=== PATIENT | male | born 1970 | race Caucasian/White ===

== ENCOUNTER 2024-11-25 06:38 | Inpatient (IN) | payer BC, SELFPAY ==
[2024-11-25] VITALS (8 sets, daily range): BP systolic 109–161; BP diastolic 64–84; PULSE 57–71; RESP 12–71; TEMP 36.4–36.9; O2SAT 97–99; BMI 23.4; BMI 23.1
--- NOTE | ~2024-11-25 | MR_ITS ---
CLINICAL HISTORY: New onset generalized seizure MR Brain with and without gadolinium Comparison: CT/SR - CT HEAD/BRAIN WO IV CON - 11/25/24 08:15 EDT Findings: No restricted diffusion. No intra-axial mass or hemorrhage. No midline shift. No hydrocephalus. No mass or abnormal enhancement. Vascular flow voids are intact. Orbital contents are unremarkable. The sinuses are clear. Mild fluid in right mastoid air cells. No focal bone lesion. IMPRESSION: 1. No abnormal intracranial findings. 2. Mild fluid in right mastoid air cells. This document has been electronically signed by: Deb Holguin MD on 11/27/2024 19:38:38
--- NOTE | ~2024-11-25 | XR_ITS ---
CLINICAL HISTORY: altered mental status 1 view chest x-ray Comparison: None provided Findings: The lungs are clear. Heart size is normal. No acute fracture. There are surgical clips within the right shoulder from prior surgery. IMPRESSION: 1. No acute findings. This document has been electronically signed by: Jaciel Tolliver MD on 11/25/2024 08:26:34
--- NOTE | ~2024-11-25 | CT_ITS ---
CLINICAL HISTORY: altered mental status, poss seizure CT head without contrast Comparison: None provided Findings: No intra-axial mass, midline shift, hydrocephalus, or acute hemorrhage. No significant atrophy-like change or white matter disease. There is no sinus or mastoid fluid. The orbits are within normal limits. No skull fracture. IMPRESSION: 1. No acute intracranial findings. This document has been electronically signed by: Cory So MD on 11/25/2024 09:06:04
--- NOTE | 2024-11-25 06:42 | ECG_ITS ---
Test Reason : SYNCOPE Blood Pressure : */* mmHG Vent. Rate : 64 BPM Atrial Rate : 64 BPM P-R Int : 170 ms QRS Dur : 92 ms QT Int : 410 ms P-R-T Axes : 70 -7 7 degrees QTcB Int : 422 ms Normal sinus rhythm Normal ECG No previous ECGs available Referred By: Generic ED Physician Electronically Signed By: AI FRANKS MD
--- NOTE | 2024-11-25 06:52 | ED_ITS ---
HPI - General Adult General Chief complaint: Altered Mental Status Stated complaint: AMS Time Seen by Provider: 11/25/24 06:50 History of Present Illness ED Provider: Amos COX narrative: The patient is a 54-year-old male who describes a past medical history of anxiety but no other significant past medical history. 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 Apparently he was found in his bathroom by his girlfriend this morning with the an altered mental status. He seemed confused. 911 was called. Paramedics felt the patient seemed confused and was behaving as if he might be postictal. He was brought to the hospital. Here the patient says he can not remember anything that happened this morning. The last thing he remembers before waking up with paramedics was going to bed yesterday evening. There was nothing remarkable about how he felt yesterday evening. There were no remarkable events yesterday evening. He currently feels ?cloudy? but denies any specific pain. He denies headache, neck pain, chest pain, pleuritic pain, shortness of breath, abdominal pain, nausea, vomiting. No fever, sweats, chills. 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 He says there was no accident or other problem at work yesterday. The patient has chronic pains in both shoulders that he says are rotator cuff problems and which prevent him from using his shoulders well. Related Data Home Medications ?Medication ?Instructions ?Recorded ?Confirmed paroxetine HCl 10 mg tablet 10 mg PO QAM 11/25/2411/13 Allergies Allergy/AdvReac Type Severity Reaction Status Date / Time No Known Allergies Allergy Verified 11/25/24 06:48 Review of Systems 2 Review of Systems: Yes all other systems are reviewed and are negative [facility] Past Medical History Surgical History (Updated 11/25/24 @ 13:21 by Kerry Ricahrds NP) H/O hernia repair S/P ACL surgery Social History Social History Smoked in Last 30 Days: No Use of substances other than those prescribed or required for medical reasons: Yes Substance Use Type: Marijuana Advance Directives: No Advance Directives Information Provided: No Do you have a plan to hurt others: No Plan Physical Exam ED Vital Signs: Vital Signs - 24 hr 11/25/24 06:45 11/25/24 08:17 11/25/24 10:00 Temperature 97.6 F 97.6 F 98 F Pulse Rate 62 62 60 Respiratory Rate 16 16 12 Blood Pressure 109/64 128/75 Pulse Oximetry 97 97 98 Oxygen Delivery Method Room Air Room Air Room Air BMI result Body Mass Index 23.4 Const Other: The patient is an athletic looking 54-year-old who looks somewhat older than his age. He looked very fatigued but not in acute distress. HENMT Other: Insert face. No signs of trauma to the head or the face. Eyes Other: Pupils are round equal, conjunctivae are clear, extraocular movements intact General: appearance normal, both eyes and all related structures Neck Other: No posterior C-spine tenderness. Moving his neck easily without pain. I felt his C-spine was clinically clear. Resp Effort & Inspection: normal respiratory effort Auscultation: clear to auscultation bilaterally GI Other: Abdomen is soft and nontender Skin Other: Skin is dry and unremarkable Neuro Other: The patient is awake and alert. He has a very slightly vague demeanor but is reasonably well oriented although he does not remember the events immediately preceding his arrival in the emergency room. He is otherwise appropriately ordered. Cranial nerves 2-12 are intact. He moves his extremities symmetrically although he has a lot of discomfort at both shoulders that limits his range of motion. He says this is chronic because of bilateral shoulder problems related to rotator cuff problems. Otherwise he is neurologically intact with no lateralizing findings. Extrem Other: No signs of trauma to the extremities. He has tenderness to both shoulders that he says is chronic. No deformities. Medications Administered Generic Name Dose Route Start Last Admin Trade Name Freq PRN Reason Stop Dose Admin Enoxaparin Sodium 40 mg 11/25/24 14:00 11/25/24 14:25 Enoxaparin Sodium 40 Mg/0.4 Ml Syringe SUBCUT 40 mg Q24H THOM Administration Ketorolac Tromethamine 30 mg 11/25/24 16:30 11/25/24 15:49 Ketorolac Tromethamine 30 Mg/Ml Vial IVPUSH 30 mg Q6H PRN Administration Pain, Moderate(Pain Scale 4-6) Sodium Chloride 3 ml 11/25/24 16:00 11/25/24 15:52 0.9 % Sodium Chloride Flush 3 Ml Syringe IVFLUSH 3 ml QSHIFT THOM Administration Discontinued Medications Generic Name Dose Route Start Last Admin Trade Name Freq PRN Reason Stop Dose Admin Diazepam 5 mg 11/25/24 07:17 11/25/24 07:20 Diazepam 10 Mg/2 Ml Cartridge IVPUSH 11/25/24 07:18 5 mg STAT STA Administration Ketorolac Tromethamine 10 mg 11/25/24 10:19 11/25/24 10:34 Ketorolac Tromethamine 15 Mg/Ml Vial IVPUSH 11/25/24 10:20 10 mg ONCE ONE Administration Medical Decision Making Medical Decision Making [facility] Narrative: The 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 He is on Paxil. This morning his girlfriend found him apparently having a seizure on the floor of the bathroom. He has no history of seizures in the past. The girlfriend says that he also has no history of any recent alcohol use or other drug use aside from marijuana. The girlfriend says that he has had several intermittent episodes of unexpected sweats over the last several months. This can happen as often as once a day and up to 3 times a day. These episodes are brief, less than 5 minutes. He has been seen at his primary care doctor's office for these episodes and the episodes has been attributed to anxiety. I do not know if these episodes are related to his seizure this morning. He has a negative head CT today. Other testing today is unremarkable. He is afebrile. I do not think there is any infectious component to his presentation today. Since he became acutely nauseated and vomited several times immediately after arrival he was given 5 mg of IV diazepam. He was also given IV fluids. He did not have any recurrent seizure activity. Ultimately I felt that hospitalization for observation was reasonable and he was admitted to the hospitalist service. Lab Data 11/25/24 07:46 11/25/24 07:46 Labs: Lab Results 11/25/24 11/25/24 11/25/24 Range/Units 07:46 07:53 10:38 WBC 9.7 (4.8-10.8) X10*3/uL RBC 4.53 L (4.60-5.80) X10*6/uL Hgb 15.0 (14.0-18.0) g/dl Hct 43.7 (42.0-52.0) % MCV 96.5 (80.0-98.0) fL MCH 33.1 H (27.0-33.0) pg MCHC 34.3 (31.0-36.0) g/dl RDW 12.8 (11.0-16.0) % Plt Count 203 (160-400) X10*3/uL MPV 9.0 L (9.4-12.4) fL Immature Gran % (Auto) 0.8 H (0.0-0.4) % Neut % (Auto) 86.8 H (45-73) % Lymph % (Auto) 6.5 L (20-40) % [place] % (Auto) 4.5 (2-11) % Eos % (Auto) 1.0 (0-4) % Baso % (Auto) 0.4 (0-2) % Lymph # (Auto) 0.6 L (1.2-4.9) X10*3/uL [place] # (Auto) 0.4 (0.1-1.2) X10*3/uL Eos # (Auto) 0.1 (0.0-0.4) X10*3/uL Baso # (Auto) 0.0 (0.0-0.2) X10*3/uL Abs Immat Gran (auto) 0.08 H (0.00-0.03) X10*3/uL Absolute Neuts (auto) 8.4 H (2.0-8.3) x10*3/uL Absolute Nucleated RBC 0.000 (0.0-0.012) X10*3/uL Nucleated RBC % (auto) 0.0 (0.0-0.2) /100WBC VBG pH 7.31 L (7.32-7.43) VBG pCO2 49 mmHg VBG pO2 40 mmHg VBG HCO3 25 (22-26) mmol/L VBG O2 Saturation 62.0 % VBG Base Excess -1.0 mmol/L Sodium 142 (135-145) mmol/L Potassium 4.4 (3.3-5.1) mmol/L Chloride 112 H (96-108) mmol/L Carbon Dioxide 25 (22-29) mmol/L Anion Gap 9 L (12-20) BUN 19 H (9-16) mg/dL Creatinine 1.07 (0.5-1.4) mg/dL Estim Creat Clear Calc 82.4 Estimated GFR > 60 Random Glucose 100 (60-115) mg/dL Lactic Acid 1.8 (0.5-2.0) mmol/L Calcium 8.8 (8.4-10.2) mg/dL Magnesium 2.1 (1.6-2.6) mg/dL Total Bilirubin 0.2 (0.0-1.0) mg/dL Direct Bilirubin < 0.2 (0.0-0.5) mg/dL AST 22 (5-37) U/L ALT 19 (0-40) U/L Alkaline Phosphatase 57 (39-117) U/L C-Reactive Protein < 0.10 (< or = 0.50) mg/dL Total Protein 6.7 (6.5-8.0) g/dL Albumin 4.2 (3.5-5.0) g/dL Urine Color Yellow Urine Appearance Cloudy Urine pH 5.0 (5.0-9.0) Ur Specific [place] 1.020 (1.005-1.025) Urine Protein 30 (1+) H (Neg-Trace) mg/dL Urine Glucose (UA) Negative (Negative) mg/dL Urine Ketones Trace (Negative) mg/dL Urine Blood Moderate (2+) H (Negative) Urine Nitrite Negative (Negative) Ur Leukocyte Esterase Negative (Negative) Urine RBC 0-2 (0-2) /HPF Urine WBC 0-5 (0-5) /HPF Ur Squamous Epith Cells 0-2 (0-2) /HPF Urine Bacteria None Seen (None Seen) Hyaline Casts 3-5 (0-2) /LPF Granular Casts Present Urine Opiates Screen Not Detected (Not Detect) Ur Buprenorphine Scrn Not Detected (Not Detect) ng/mL Ur Oxycodone Screen Not Detected (Not Detect) ng/mL Urine Methadone Screen Not Detected (Not Detect) ng/mL Urine Fentanyl Screen Not Detected (Not Detect) Ur Barbiturates Screen Not Detected (Not Detect) Ur Phencyclidine Scrn Not Detected (Not Detect) Ur Amphetamines Screen Not Detected (Not Detect) U Benzodiazepines Scrn POSITIVE H (Not Detect) Urine Cocaine Screen Not Detected (Not Detect) U Marijuana (THC) Screen POSITIVE H (Not Detect) Ethyl Alcohol < 10 mg/dL Independent Interpretation I performed an independent interpretation of an: EKG Interpretation: EKG at 06/17/2005 shows normal sinus rhythm at 64 beats per minute. It is a normal EKG. Discharge Plan Discharge Clinical Impression: Seizure Patient Disposition: Admitted As Inpatient
[2024-11-25] MEDS: diazePAM 10 MG/2 ML CARTRIDGE 5 MG IVPUSH (07:20)
[2024-11-25 07:51] LABS: MANUAL DIFF FLAG NO
[2024-11-25 07:56] LABS: VBG HCO3 25 mmol/L (22-26); VBG O2 % Saturation 62.0 %
[2024-11-25 07:57] LABS: Venous Blood Gas Refer to POC result
[2024-11-25 07:59] LABS: Hematocrit 43.7 % (42.0-52.0); Hemoglobin 15.0 g/dl (14.0-18.0); Imm Gran Abs Auto 0.08 X10*3/uL (0.00-0.03); Imm Gran Pct Auto 0.8 % (0.0-0.4); Lymphocytes Absolute Auto 0.6 X10*3/uL (1.2-4.9); Mean Corpuscular HGB Conc 34.3 g/dl (31.0-36.0); Mean Corpuscular Hemoglobin 33.1 pg (27.0-33.0); Mean Corpuscular Volume 96.5 fL (80.0-98.0); NRBC Abs Auto 0.000 X10*3/uL (0.0-0.012); NRBC Pct Auto 0.0 /100WBC (0.0-0.2); Platelet Count 203 X10*3/uL (160-400); Red Blood Count 4.53 X10*6/uL (4.60-5.80); White Blood Count 9.7 X10*3/uL (4.8-10.8)
--- OUTSIDE RECORDS SUMMARY | 2024-11-25 07:59 | XMS_ITS ---
Author Name [facility] Organization Unknown Care Team Organization Name Specialty Phone Email Start Date End Da te [facility] 11/01/2024 [facility] Batsheva Bauer Primary Care 07/20/2022 11/01/19 [facility] Tricia Calvin Primary Care 01/20/202210/13
--- OUTSIDE RECORDS SUMMARY | 2024-11-25 07:59 | XMS_ITS | Clinical Summary ---
Author Organization [facility] Address [address] [place] [address] Phone Care Team Providers Care Button Sewer Name Role Phone Eliza Varghese MD Primary Care Provider Allergies Active Allergy Reactions Criticality Noted Date Comments Other 01/24/2024 Medications EPINEPHrine (EpiPen 2-Bola) 0.3 mg/0.3 mL injection Inject 0.3 mL (0.3 mg total) into the thigh if needed for anaphylaxis . 1 each 1 06/19/2024 Active PARoxetine (PAXIL) 10 mg tablet Take 1 tablet (10 mg total) by mouth 1 (one) time each day in the morning. 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 Marijuana use 04/11/2020 MRSA (methicillin resistant staph aureus) cultur e positive 06/01/2017 ACL tear 02/03/2013 Immunizations Name Administration Dates Next Due Influenza trivalent, with pr eservative (Fluzone; Afluria) 6mo and older 03/11/2020 Pneumococcal conjugate 20 va lent (Prevnar 20, PCV 20) 2mo and older 06/19/2024 TD, Adsorbed, Preservative Free 10/17/2021 Td Tetanus diptheria (Tdvax) 7yo and older 02/28 Surgical History Surgery Date Site/Laterality Comments OTHER SURGICAL HISTORY PROCEDURE: MS NEUROPLASTY &/TRANSPOSITION ULNAR NERVE ELBOW ROTATOR CUFF REPAIR 2002 PROCEDURE: HISTORICAL ROTATOR CUFF REPAIR; COMMENT: right shoulder KNEE ARTHROSCOPY W/ ACL RECONSTRUCTION Right US GROIN/INGUINAL HERNIA Left Family History Medical History Relation Name Comments Colon cancer Father Prostate cancer Father Relation Name Status Comments Brother x 2 Alive Father Alive Maternal Grandfather Maternal Grandmother Mother Alive Paternal Grandfather Paternal Grandmother Social History Tobacco Use Types Packs/Day Years Used Date Smoking Tobacco: Former Cigarettes Smokeless Tobacco: Never Tobacco Cessation:Counseling Given: Not Answered Alcohol Use Standard Drinks/Week Comments No 0 (1 standard drink = 0.6 oz pur e alcohol) Interpersonal Safety Answer Date Record ed Physical Abuse 01/24/2024 Verbal Abuse 01/24/2024 Sex and Gender Information Value Date Recorded Sex Assigned at Male 01/14/2024 2:55 PM EDT Legal Sex Male 1:16 PM EST Gender Identity Male 01/14/2024 2:55 PM EDT Sexual Orientation Straight 01/14/2024 2: 55 PM EDT Obstetrics History Last Filed Vital Signs Vital Sign Reading Time Taken Comments Blood Pressure 131/77 06/19/2024 9:57 AM EDT Pulse 73 06/19/2024 9:57 AM EDT Temperature 36.3 C (97.3 F) 06/19/2024 9:57 AM EDT Respiratory Rate 16 06/19/2024 9:57 AM EDT Oxygen Saturation 98% 06/19/2024 9:57 AM EDT Inhaled Oxygen Concentration - - Weight 78.1 kg (172 lb 3.2 oz) 06/19/2024 9:57 A M EDT Height 170.2 cm (5' 7 ) 06/19/2024 9:57 AM EDT Body Mass Index 26.97 06/19/2024 9:57 AM EDT Plan of Treatment Upcoming Encounters Date Type Department Care Team (Late st Contact Info) Description 12/28/2024 3:30 PM EDT Office Visit Adult Medicine [facility] [address] [place] [address], [place] [phone] Eliza Varghese MD [address] [place] [address] Health Maintenance Due Date Last Done Comments Zoster Vaccines (1 of 2) 2021 Social Influencers of Health Screening 02/10/2022 Depression Screening 03/15/2024 Influenza Vaccine (#1) 2024 03/11/2020 Colorectal Cancer Screening: Colonoscopy 01/23/2029 01/24/2024 Cholesterol Screening (Lipid Panel) 06/29/2029 06/29/2024, 10/29/2023, 10/29/2023 DTaP,Tdap,and Td Vaccines (3 - Td or Tdap) 10/18/2031 10/17/2021, 02/28/2014 Hepatitis C Screening Completed 05/17/2019 COVID-19 Vaccine Discontinued 04/03/2021, 06/23/2020, 06/02/2020 Pneumococcal Vaccine: 50+ Years Completed 06/19/2024 HIB Vaccines Aged Out No longer eligi ble based on patient's age to complete this topic HIV Screening Discontinued HPV Vaccines Aged Out No longer eligi ble based on patient's age to complete this topic Hepatitis A Vaccines Aged Out No long er eligible based on patient's age to complete this topic Hepatitis B Vaccines Discontinued IPV Vaccines Aged Out No longer eligi ble based on patient's age to complete this topic MMR Vaccines Aged Out No longer eligi ble based on patient's age to complete this topic Meningococcal ACWY Vaccine Aged Out N o longer eligible based on patient's age to complete this topic Meningococcal B Vaccine Aged Out No l onger eligible based on patient's age to complete this topic RSV Immunization Patients Under 20 months Aged Out No longer eligible based on patient's age to complete this topic Varicella Vaccines Aged Out No longer eligible based on patient's age to complete this topic Procedures Procedure Name Priority Date/Time Associated Diagnosis Comments LIPID PANEL WITH REFLEX TO DIRECT LDL Routine 06/29/2024 2:30 PM EDT Encounter for screening for cardiovascular disorders COLONOSCOPY Routine 01/24/2024 3:20 PM EST Colon cancer screening HM HEPATITIS C SCREENING Routine 05/17/2019 from Last 3 Months or Most Recently Relevant to Health Maintenance Results * (ABNORMAL) Lipid panel with reflex to direct LDL (06/29/2024 2:30 PM EDT) Cholesterol 209(H) 0 - 200 mg/dL LAB CHEMISTRY METHOD 06/29/2024 5:36 PM EDT [facility] Triglycerides 242(H) 0 - 150 mg/dL LAB CHEMISTRY METHOD 06/29/2024 5:36 PM EDT [facility] HDL 39(L) >=40 mg/dL LAB CHEMISTRY METHOD 06/29/2024 5:36 PM EDT [facility] LDL Calculated 122(H) 0 - 100 mg/dL LAB CHEMISTRY METHOD 06/29/2024 5:36 PM EDT [facility] VLDL Cholesterol Gerry 48.4 mg/dL LAB CHEMISTRY METHOD 06/29/2024 5:36 PM EDT [facility] Non HDL Chol. (LDL+VLDL) 170(H) <145 mg/dL LAB CHEMISTRY METHOD 06/29/2024 5:36 PM EDT [facility] Chol/HDL Ratio 5.4(H) 0.0 - 4.4 LAB CHEMISTRY METHOD 06/29/2024 5:36 PM EDT [facility] Blood Venous blood specimen / Unknown Venipuncture / Unknown 06/29/2024 2:30 PM EDT 06/29/2024 2:30 PM EDT us Shazia Adamson PULL TAB [employer]ER LAB BLOOD ORDERABLES Final R esult [facility] [address] [place] [address], * COLONOSCOPY Anesthesia - [facility]; [facility] ENDOSCOPY (01/24/2024 3:20 PM EST) Anatomical Region Laterality Modality Other 01/24/2024 3:08 PM EST Narrative 01/24/2024 3:23 PM EST [facility] Patient Name: Roshan Denise Procedure Date: 01/24/2024 3:08 PM Date of : 1970 Age: 54 Gender: Male Note Status: Finalized Attending MD: Adria Baca MD, Procedure Date No Time: 01/24/2024 Procedure: Colonoscopy Indications: Screening for colorectal malignant neoplasm Providers: Adria Baca MD Referring MD: Adria Baca MD Medicines: Propofol per Anesthesia Complications: No immediate complications. Estimated Blood Loss: Estimated blood loss was minimal. Procedure: Pre-Anesthesia Assessment: - ASA Grade Assessment: II - A patient with mild systemic disease. After I obtained informed consent, the scope was passed under direct vision. Throughout the procedure, the patient's blood pressure, pulse, and oxygen saturations were monitored continuously.The Colonoscope was introduced through the anus and advanced to the cecum, identified by appendiceal orifice and ileocecal valve. The colonoscopy was performed without difficulty. The patient tolerated the procedure well. The quality of the bowel preparation was adequate. Findings: The perianal and digital rectal examinations were normal. Internal hemorrhoids were found during endoscopy. The hemorrhoids were Grade I (internal hemorrhoids that do not prolapse). Three sessile polyps were found in the descending colon and hepatic flexure. The polyps were 3 to 5 mm in size. These polyps were removed with a cold snare. Resection and retrieval were complete. Estimated blood loss was minimal. Impression: - Internal hemorrhoids. - Three 3 to 5 mm polyps in the descending colon and at the hepatic flexure, removed with a cold snare. Resected and retrieved. Recommendation: - Await pathology results. - Use fiber, for example Citrucel, Fibercon, Konsyl or Metamucil. - Repeat colonoscopy in 5 years for surveillance. Procedure Code(s): --- Professional --- 78553, Colonoscopy, flexible; with removal of tumor(s), polyp(s), or other lesion(s) by snare technique Diagnosis Code(s): --- Professional --- Z12.11, Encounter for screening for malignant neoplasm of colon K64.0, First degree hemorrhoids D12.4, Benign neoplasm of descending colon D12.3, Benign neoplasm of transverse colon (hepatic flexure or splenic flexure) CPT copyright 2020 [employer]. All rights reserved. The codes documented in this report are preliminary and upon materials handling equipment operator review may be revised to meet current compliance requirements. Adria Baca MD Adria Baca MD 01/24/2024 3:23:01 PM This report has been signed electronically.Adria Baca MD Number of Addenda: 0 Note Initiated On: 01/24/2024 3:08 PM Scope In: Scope Out: Endoscopy Department at [facility] - [address] [place] [phone] Procedure Note Adria Baca MD - 01/24/2024 [facility] GI Patient Name: Roshan Denise Procedure Date: 01/24/2024 3:08 PM Date of : 1970 Age: 54 Gender: Male Note Status: Finalized Attending MD: Adria Baca MD, Procedure Date No Time: 01/24/2024 Procedure: Colonoscopy Indications: Screening for colorectal malignant neoplasm Providers: Adria Baca MD Referring MD: Adria Baca MD Medicines: Propofol per Anesthesia Complications: No immediate complications. Estimated Blood Loss: Estimated blood loss was minimal. Procedure: Pre-Anesthesia Assessment: - ASA Grade Assessment: II - A patient with mild systemic disease. After I obtained informed consent, the scope was passed under direct vision. Throughout theprocedure, the patient's blood pressure, pulse, and oxygen saturations were monitored continuously.The Colonoscope was introduced through the anus and advanced to the cecum, identified by appendiceal orifice and ileocecal valve. The colonoscopy was performed without difficulty. The patient tolerated the procedure well. The quality of the bowel preparation was adequate. Findings: The perianal and digital rectal examinations were normal. Internal hemorrhoids were found during endoscopy.The hemorrhoids were Grade I (internal hemorrhoids thatdo not prolapse). Three sessile polyps were found in the descending colon and hepatic flexure. The polyps were 3 to 5mm in size. These polyps were removed with a coldsnare. Resection and retrieval were complete. Estimatedblood loss was minimal. Impression: - Internal hemorrhoids. - Three 3 to 5 mm polyps in the descending colonand at the hepatic flexure, removed with a cold snare. Resected and retrieved. Recommendation: - Await pathology results. - Use fiber, for example Citrucel, Fibercon, Konsylor Metamucil. - Repeat colonoscopy in 5 years for surveillance. Procedure Code(s): --- Professional --- 52108, Colonoscopy, flexible; with removal of tumor(s), polyp(s), or other lesion(s) by snare technique Diagnosis Code(s): --- Professional --- Z12.11, Encounter for screening for malignantneoplasm of colon K64.0, First degree hemorrhoids D12.4, Benign neoplasm of descending colon D12.3, Benign neoplasm of transverse colon (hepatic flexure or splenic flexure) CPT copyright 2020 [employer]. All rights reserved. The codes documented in this report are preliminary and upon materials handling equipment operator reviewmay be revised to meet current compliance requirements. Adria Baca MD Adria Baca MD 01/24/2024 3:23:01 PM This report has been signed electronically.Adria Baca MD Number of Addenda: 0 Note Initiated On: 01/24/2024 3:08 PM Scope In: Scope Out: Endoscopy Department at [facility] - [address] [place] [phone] Adria Baca MD GI~PROCEDURE ORDERABLES Final Re sult * Hepatitis C Screening (05/17/2019) Hepatitis C Screening Abstracted us Historical Provider HEALTH MAINTENANCE Final Result from Last 3 Months or Most Recently Relevant to Health Maintenance Insurance [facility] Care Teams Button Sewer Relationship Specialty Start Date End Date Eliza Varghese MD [address] [place] [address] PCP - General Internal Medicine 12/26/20
[2024-11-25 08:19] LABS: Alanine Aminotransferase 19 U/L (0-40); Albumin Level 4.2 g/dL (3.5-5.0); Alkaline Phosphatase 57 U/L (39-117); Anion Gap 9 (12-20); Aspartate Amino Transferase 22 U/L (5-37); Blood Urea Nitrogen 19 mg/dL (9-16); Calcium 8.8 mg/dL (8.4-10.2); Carbon Dioxide 25 mmol/L (22-29); Chloride 112 mmol/L (96-108); Creatinine Clr Calc Pharmacy 82.4; Estimated Glomerular Filt Rate > 60; Magnesium 2.1 mg/dL (1.6-2.6); Potassium 4.4 mmol/L (3.3-5.1); Sodium 142 mmol/L (135-145); Total Protein 6.7 g/dL (6.5-8.0)
--- NOTE | 2024-11-25 09:49 | PC.NURSE ---
Patient presents to ED after found him laying on the floor in bathroom unconscious, patient awoke but is lethargic and slow to respond Patient denies pain, SOB, dizziness, vision changes No hx of seizures, PMH anxiety Denies drug use CXR = negative Head CT = negative Family at bedside Katie would like to be contacted if there are any changes [phone]
[2024-11-25 10:47] LABS: Appearance Urine Cloudy; Glucose Urine UA Negative (Negative); PH 5.0 (5.0-9.0); Specific Gravity - Urine 1.020 (1.005-1.025); UMIC TRIGGER UACC YES
[2024-11-25 11:08] LABS: Cannabinoid Screen Urine POSITIVE (Not Detect)
--- NOTE | 2024-11-25 12:51 | PM.IMHP ---
History of Present Illness Date of Service: 11/25/24 Chief Complaint: Seizure 54-year-old man presented to the ER after witnessed seizure at home. Apparently around 6 this morning the heard the dog barking and she got up went to the bathroom and found her on the floor shaking, frothing at the mouth and biting his tongue. Apparently patient also had a loss of bladder control. Patient does not have any history of seizure disorder and denied any recent illness, sick travel, drugs, alcohol. He did report that he has had higher anxiety lately as he is having some financial difficulties. In the ER, head CT was negative for acute abnormality. Patient received a dose of Valium and Toradol in the ER. Labs and vital signs within normal limits. Patient will be placed on observation for further workup of possible seizure Review of Systems Review of Systems: Denies any recent fever chills or decrease in appetite respiratory denies any shortness of breath or cough cardiovascular denied chest pain gastrointestinal denies any dysphagia abdominal pain nausea vomiting or diarrhea genitourinary denies any dysuria frequency or hematuria musculoskeletal denies any joint pain or swelling neuropsych denies any weakness or seizures all other systems reviewed are negative [facility] Surgical History (Updated 11/25/24 @ 13:21 by Kerry Richards NP) H/O hernia repair S/P ACL surgery Social History Smoked in Last 30 Days: No Use of substances other than those prescribed or required for medical reasons: Yes Substance Use Type: Marijuana Advance Directives: No Advance Directives Information Provided: No Do you have a plan to hurt others: No Plan Meds Allergies Allergy/AdvReac Type Severity Reaction Status Date / Time No Known Allergies Allergy Verified 11/25/24 06:48 Physical Exam Vital Signs and Narrative: Vital Signs: Last Vital Signs Temp 98 F 11/25/24 12:00 Pulse 61 11/25/24 12:00 Resp 17 11/25/24 12:00 BP 130/70 11/25/24 12:00 Pulse Ox 98 11/25/24 12:00 O2 Del Method Room Air 11/25/24 12:00 BMI result Body Mass Index 23.4 Appearing in no acute distress head is normocephalic atraumatic eyes pupils are PERRLA sclera is anicteric mouth throat mucous membranes are intact and moist neck is supple no lymphadenopathy, no JVD noted lung sounds are clear to auscultation heart regular rate rhythm, clear S1, S2 positive bowel sounds, abdomen is soft, nontender neuro patient is alert x3, no focal deficits Results Labs 11/25/24 07:46 11/25/24 07:46 Labs: Laboratory Results - last 24 hr 11/25/24 11/25/24 11/25/24 07:46 07:53 10:38 MCV 96.5 MCH 33.1 H MCHC 34.3 RDW 12.8 Plt Count 203 MPV 9.0 L Immature Gran % (Auto) 0.8 H Neut % (Auto) 86.8 H Lymph % (Auto) 6.5 L [place] % (Auto) 4.5 Eos % (Auto) 1.0 Baso % (Auto) 0.4 Lymph # (Auto) 0.6 L [place] # (Auto) 0.4 Eos # (Auto) 0.1 Baso # (Auto) 0.0 Abs Immat Gran (auto) 0.08 H Absolute Neuts (auto) 8.4 H Absolute Nucleated RBC 0.000 Nucleated RBC % (auto) 0.0 VBG pH 7.31 L VBG pCO2 49 VBG pO2 40 VBG HCO3 25 VBG O2 Saturation 62.0 VBG Base Excess -1.0 Anion Gap 9 L Estim Creat Clear Calc 82.4 Estimated GFR > 60 Random Glucose 100 Lactic Acid 1.8 Calcium 8.8 Magnesium 2.1 Total Bilirubin 0.2 Direct Bilirubin < 0.2 AST 22 ALT 19 Alkaline Phosphatase 57 C-Reactive Protein < 0.10 Total Protein 6.7 Albumin 4.2 Urine Color Yellow Urine Appearance Cloudy Urine pH 5.0 Ur Specific [place] 1.020 Urine Protein 30 (1+) H Urine Glucose (UA) Negative Urine Ketones Trace Urine Blood Moderate (2+) H Urine Nitrite Negative Ur Leukocyte Esterase Negative Urine RBC 0-2 Urine WBC 0-5 Ur Squamous Epith Cells 0-2 Urine Bacteria None Seen Hyaline Casts 3-5 Granular Casts Present Urine Opiates Screen Not Detected Ur Buprenorphine Scrn Not Detected Ur Oxycodone Screen Not Detected Urine Methadone Screen Not Detected Urine Fentanyl Screen Not Detected Ur Barbiturates Screen Not Detected Ur Phencyclidine Scrn Not Detected Ur Amphetamines Screen Not Detected U Benzodiazepines Scrn POSITIVE H Urine Cocaine Screen Not Detected U Marijuana (THC) Screen POSITIVE H Ethyl Alcohol < 10 Assessment and Plan (1) Seizure: Status: Acute Plan 54-year-old man presented to the ER with possible new onset seizure Possible new onset seizure Head CT negative for acute abnormality No electrolyte abnormalities Seizure precautions Neurology consultation, hold off on antiseizure medications for now Anxiety continue home medications DVT prophylaxis with Lovenox Full code Quality Stroke Does the patient have a stroke diagnosis?: No VTE Prior VTE?: No VTE Risk Level:: Medical - moderate - high VTE Device Contraindication: Treatment Not Indicated VTE Drug Contraindication: N/A - Med Ordered
--- NOTE | 2024-11-25 14:17 | PC.NURSE ---
pt had episode of diaphoresis. no sz activity. VSS
[2024-11-25 14:23] LABS: Glucose, Whole Blood 94 mg/dL (60-115)
[2024-11-25] MEDS: 0.9 % Sodium Chloride Flush 3 ML SYRINGE IVFLUSH ×2 (15:52→20:15)
--- NOTE | 2024-11-25 16:11 | PHA.MEDREC ---
Pharmacy Consult ? Medication Reconciliation Pharmacy has completed the medication reconciliation. Confirmed medication list with patient.
[2024-11-26 04:00] VITALS: BP 119/70; PULSE 54; RESP 20; TEMP 36.6; O2SAT 96
[2024-11-26 07:15] LABS: Hematocrit 41.9 % (42.0-52.0); Hemoglobin 14.4 g/dl (14.0-18.0); Mean Corpuscular HGB Conc 34.4 g/dl (31.0-36.0); Mean Corpuscular Hemoglobin 32.8 pg (27.0-33.0); Mean Corpuscular Volume 95.4 fL (80.0-98.0); NRBC Abs Auto 0.000 X10*3/uL (0.0-0.012); NRBC Pct Auto 0.0 /100WBC (0.0-0.2); Platelet Count 202 X10*3/uL (160-400); Red Blood Count 4.39 X10*6/uL (4.60-5.80); White Blood Count 9.7 X10*3/uL (4.8-10.8)
--- NOTE | 2024-11-26 07:19 | HO.PM.IMPN ---
Subjective Subjective Date of Service: 11/26/24 Interval History: Patient is seizure free since admission We will continue to monitor His mother was at bedside Physical Exam Exam: Exam: General: AOx3, no acute distress Resp: CTA bilaterally CVS: S1, S2, RRR GI: +BS, NT, no distention Skin: Warm, dry Neuro: No indication of any seizures Vital Signs: Vital Signs: Last Vital Signs Temp 97.9 F 11/26/24 04:00 Pulse 54 11/26/24 04:00 Resp 20 11/26/24 04:00 BP 119/70 11/26/24 04:00 Pulse Ox 96 11/26/24 04:00 O2 Del Method Room Air 11/26/24 04:00 BMI result Body Mass Index 23.1 Objective Data Active Medications Acetaminophen (Acetaminophen 325 Mg Tablet) 650 mg PO Q6H PRN PRN Reason: Pain, Mild 1-3,fever,headache Calcium Carbonate (Calcium Carbonate 750 Mg Tab.Chew) 750 mg PO Q4H PRN PRN Reason: Heartburn Enoxaparin Sodium (Enoxaparin Sodium 40 Mg/0.4 Ml Syringe) 40 mg SUBCUT Q24H [facility] Last Admin: 11/25/24 14:25 Dose: 40 mg Documented By: DELMIS Ketorolac Tromethamine (Ketorolac Tromethamine 30 Mg/Ml Vial) 30 mg IVPUSH Q6H PRN PRN Reason: Pain, Moderate(Pain Scale 4-6) Last Admin: 11/25/24 22:14 Dose: 30 mg Documented By: JEANETTE Magnesium Hydroxide (Milk Of Magnesia 30 Ml Oral.Susp) 30 ml PO DAILY PRN PRN Reason: Constipation Melatonin (Melatonin 3 Mg Tablet) 6 mg PO BEDTIME PRN PRN Reason: Insomnia Ondansetron HCl (Ondansetron Hcl 4 Mg/2 Ml Vial) 4 mg IVPUSH Q8H PRN PRN Reason: Nausea and Vomiting Sodium Chloride (0.9 % Sodium Chloride Flush 3 Ml Syringe) 3 ml IVFLUSH QSHIFT [facility] Last Admin: 11/25/24 20:15 Dose: 3 ml Documented By: JEANETTE Labs 11/26/24 06:35 11/26/24 06:35 Labs: Laboratory Results - last 24 hr 11/25/24 11/25/24 11/25/24 07:46 07:53 10:38 MCV 96.5 MCH 33.1 H MCHC 34.3 RDW 12.8 Plt Count 203 MPV 9.0 L Immature Gran % (Auto) 0.8 H Neut % (Auto) 86.8 H Lymph % (Auto) 6.5 L [place] % (Auto) 4.5 Eos % (Auto) 1.0 Baso % (Auto) 0.4 Lymph # (Auto) 0.6 L [place] # (Auto) 0.4 Eos # (Auto) 0.1 Baso # (Auto) 0.0 Abs Immat Gran (auto) 0.08 H Absolute Neuts (auto) 8.4 H Absolute Nucleated RBC 0.000 Nucleated RBC % (auto) 0.0 VBG pH 7.31 L VBG pCO2 49 VBG pO2 40 VBG HCO3 25 VBG O2 Saturation 62.0 VBG Base Excess -1.0 Anion Gap 9 L Estim Creat Clear Calc 82.4 Estimated GFR > 60 POC Glucose Random Glucose 100 Lactic Acid 1.8 Calcium 8.8 Magnesium 2.1 Total Bilirubin 0.2 Direct Bilirubin < 0.2 AST 22 ALT 19 Alkaline Phosphatase 57 C-Reactive Protein < 0.10 Total Protein 6.7 Albumin 4.2 Urine Color Yellow Urine Appearance Cloudy Urine pH 5.0 Ur Specific [place] 1.020 Urine Protein 30 (1+) H Urine Glucose (UA) Negative Urine Ketones Trace Urine Blood Moderate (2+) H Urine Nitrite Negative Ur Leukocyte Esterase Negative Urine RBC 0-2 Urine WBC 0-5 Ur Squamous Epith Cells 0-2 Urine Bacteria None Seen Hyaline Casts 3-5 Granular Casts Present Urine Opiates Screen Not Detected Ur Buprenorphine Scrn Not Detected Ur Oxycodone Screen Not Detected Urine Methadone Screen Not Detected Urine Fentanyl Screen Not Detected Ur Barbiturates Screen Not Detected Ur Phencyclidine Scrn Not Detected Ur Amphetamines Screen Not Detected U Benzodiazepines Scrn POSITIVE H Urine Cocaine Screen Not Detected U Marijuana (THC) Screen POSITIVE H Ethyl Alcohol < 10 11/25/24 11/26/24 14:17 06:35 MCV 95.4 MCH 32.8 MCHC 34.4 RDW 12.7 Plt Count 202 MPV 9.3 L Immature Gran % (Auto) Neut % (Auto) Lymph % (Auto) [place] % (Auto) Eos % (Auto) Baso % (Auto) Lymph # (Auto) [place] # (Auto) Eos # (Auto) Baso # (Auto) Abs Immat Gran (auto) Absolute Neuts (auto) Absolute Nucleated RBC 0.000 Nucleated RBC % (auto) 0.0 VBG pH VBG pCO2 VBG pO2 VBG HCO3 VBG O2 Saturation VBG Base Excess Anion Gap Estim Creat Clear Calc Estimated GFR POC Glucose 94 Random Glucose Lactic Acid Calcium Magnesium Total Bilirubin Direct Bilirubin AST ALT Alkaline Phosphatase C-Reactive Protein Total Protein Albumin Urine Color Urine Appearance Urine pH Ur Specific [place] Urine Protein Urine Glucose (UA) Urine Ketones Urine Blood Urine Nitrite Ur Leukocyte Esterase Urine RBC Urine WBC Ur Squamous Epith Cells Urine Bacteria Hyaline Casts Granular Casts Urine Opiates Screen Ur Buprenorphine Scrn Ur Oxycodone Screen Urine Methadone Screen Urine Fentanyl Screen Ur Barbiturates Screen Ur Phencyclidine Scrn Ur Amphetamines Screen U Benzodiazepines Scrn Urine Cocaine Screen U Marijuana (THC) Screen Ethyl Alcohol Assessment and Plan (1) Seizure: Status: Acute Plan Patient with history of anxiety without prior seizure history was noted to be postictal by his girlfriend and was admitted for seizure workup. # seizure of unclear etiology Intracranial pathology ruled out with scans Patient has been on seizure precautions, remained seizure-free since admission night Tox screen positive for benzo, administered this admission, marijuana We will continue to monitor and if remains seizure-free, we will schedule him with outpatient PCP and neurology workup/ Per Neurology, does not warrant EEG or seizure meds since this is a 1st time occurrence DVT prophylaxis with Lovenox to be continued Anxiety -continue home meds This note is constructed using voice recognition software. While every effort has been made to ensure accuracy, visual presentation manager errors may have been included. Quality Stroke Does the patient have a stroke diagnosis?: No VTE Prior VTE?: No VTE Risk Level:: Medical - moderate - high VTE Device Contraindication: Treatment Not Indicated VTE Drug Contraindication: N/A - Med Ordered
[2024-11-26 07:26] LABS: Magnesium 2.1 mg/dL (1.6-2.6)
[2024-11-26 07:35] LABS: Alanine Aminotransferase 16 U/L (0-40); Albumin Level 4.2 g/dL (3.5-5.0); Alkaline Phosphatase 59 U/L (39-117); Anion Gap 13 (12-20); Aspartate Amino Transferase 24 U/L (5-37); Blood Urea Nitrogen 21 mg/dL (9-16); Calcium 9.1 mg/dL (8.4-10.2); Carbon Dioxide 23 mmol/L (22-29); Chloride 110 mmol/L (96-108); Creatinine Clr Calc Pharmacy 93.8; Estimated Glomerular Filt Rate > 60; Potassium 3.6 mmol/L (3.3-5.1); Sodium 142 mmol/L (135-145); Total Protein 6.8 g/dL (6.5-8.0)
[2024-11-26 07:38] VITALS: BP 129/63; PULSE 52; RESP 18; TEMP 36.1; O2SAT 98
[2024-11-26 07:44] LABS: Thyroid Stimulating Hormone 1.42 uIU/mL (0.32-4.0)
--- NOTE | 2024-11-26 11:30 | PC.NURSE ---
Patient scored as high fall risk do to question of seizure but refused bed alarm, education provided on the use of call back and importance of asking for assistance while ambulating.
[2024-11-26 11:49] VITALS: BP 151/70; PULSE 57; RESP 18; TEMP 36.4; O2SAT 98
[2024-11-26] MEDS: 0.9 % Sodium Chloride Flush 3 ML SYRINGE IVFLUSH ×3 (12:08→22:10)
--- NOTE | 2024-11-26 15:26 | MHC.CM.PN ---
PT REPORTS HE LIVES WITH HIS S/O AND CHILDREN HE IS INDEPENDENT WITH CARE, HAS NO DME AND NO SERVICES PCP AT [facility] IN [place] A HCP OBSERVATION NOTICE DELIVERED DCP: HOME VIA PRIVATE TRANSPORT
[2024-11-26 15:38] VITALS: BP 151/75; PULSE 64; RESP 16; TEMP 36.3; O2SAT 99
[2024-11-26 19:59] VITALS: BP 134/65; PULSE 50; RESP 18; TEMP 36.1; O2SAT 98
[2024-11-26 23:32] VITALS: BP 118/65; PULSE 53; RESP 18; TEMP 36.4; O2SAT 98
[2024-11-27 03:33] VITALS: BP 135/73; PULSE 60; RESP 16; TEMP 36.3; O2SAT 98
[2024-11-27 06:53] LABS: MANUAL DIFF FLAG NO
[2024-11-27 07:01] LABS: Hematocrit 44.9 % (42.0-52.0); Hemoglobin 15.2 g/dl (14.0-18.0); Imm Gran Abs Auto 0.04 X10*3/uL (0.00-0.03); Imm Gran Pct Auto 0.5 % (0.0-0.4); Lymphocytes Absolute Auto 1.2 X10*3/uL (1.2-4.9); Mean Corpuscular HGB Conc 33.9 g/dl (31.0-36.0); Mean Corpuscular Hemoglobin 32.8 pg (27.0-33.0); Mean Corpuscular Volume 96.8 fL (80.0-98.0); NRBC Abs Auto 0.000 X10*3/uL (0.0-0.012); NRBC Pct Auto 0.0 /100WBC (0.0-0.2); Platelet Count 224 X10*3/uL (160-400); Red Blood Count 4.64 X10*6/uL (4.60-5.80); White Blood Count 7.6 X10*3/uL (4.8-10.8)
[2024-11-27 07:21] LABS: Alanine Aminotransferase 18 U/L (0-40); Albumin Level 4.4 g/dL (3.5-5.0); Alkaline Phosphatase 57 U/L (39-117); Anion Gap 12 (12-20); Aspartate Amino Transferase 22 U/L (5-37); Blood Urea Nitrogen 26 mg/dL (9-16); Calcium 9.2 mg/dL (8.4-10.2); Carbon Dioxide 28 mmol/L (22-29); Chloride 107 mmol/L (96-108); Creatinine Clr Calc Pharmacy 91.8; Estimated Glomerular Filt Rate > 60; Potassium 3.6 mmol/L (3.3-5.1); Sodium 143 mmol/L (135-145); Total Protein 7.0 g/dL (6.5-8.0)
--- NOTE | 2024-11-27 07:33 | HO.PM.IMPN ---
Subjective Subjective Date of Service: 11/27/24 Interval History: Seizure-free Mother at the bedside EEG ordered Neuro consulted , initiated on levetiracetam Patient Review of Systems Review of Systems: Yes all other systems are reviewed and are negative Physical Exam Exam: Exam: General: AOx3, no acute distress Resp: CTA bilaterally CVS: S1, S2, RRR GI: +BS, NT, no distention Skin: Warm, dry Neuro: Cranial nerves II-XII grossly intact bilaterally. Motor grossly intact bilaterally Extremities: No edema Psych: Appropriate affect Vital Signs: Vital Signs: Last Vital Signs Temp 97.4 F 11/27/24 03:33 Pulse 60 11/27/24 03:33 Resp 16 11/27/24 03:33 BP 135/73 11/27/24 03:33 Pulse Ox 98 11/27/24 03:33 O2 Del Method Room Air 11/27/24 03:33 BMI result Body Mass Index 23.1 Objective Data Active Medications Acetaminophen (Acetaminophen 325 Mg Tablet) 650 mg PO Q6H PRN PRN Reason: Pain, Mild 1-3,fever,headache Calcium Carbonate (Calcium Carbonate 750 Mg Tab.Chew) 750 mg PO Q4H PRN PRN Reason: Heartburn Enoxaparin Sodium (Enoxaparin Sodium 40 Mg/0.4 Ml Syringe) 40 mg SUBCUT Q24H [facility] Last Admin: 11/26/24 15:09 Dose: 40 mg Documented By: JASWANT Ketorolac Tromethamine (Ketorolac Tromethamine 30 Mg/Ml Vial) 30 mg IVPUSH Q6H PRN PRN Reason: Pain, Moderate(Pain Scale 4-6) Last Admin: 11/26/24 22:09 Dose: 30 mg Documented By: KELLY Magnesium Hydroxide (Milk Of Magnesia 30 Ml Oral.Susp) 30 ml PO DAILY PRN PRN Reason: Constipation Melatonin (Melatonin 3 Mg Tablet) 6 mg PO BEDTIME PRN PRN Reason: Insomnia Ondansetron HCl (Ondansetron Hcl 4 Mg/2 Ml Vial) 4 mg IVPUSH Q8H PRN PRN Reason: Nausea and Vomiting Paroxetine HCl (Paroxetine Hcl 10 Mg Tablet) 10 mg PO DAILY [facility] Last Admin: 11/26/24 12:07 Dose: 10 mg Documented By: JASWANT Sodium Chloride (0.9 % Sodium Chloride Flush 3 Ml Syringe) 3 ml IVFLUSH QSHIFT [facility] Last Admin: 11/26/24 22:10 Dose: 3 ml Documented By: KELLY Labs 11/27/24 06:15 11/27/24 06:15 Labs: Laboratory Results - last 24 hr 11/26/24 11/27/24 06:35 06:15 MCV 96.8 MCH 32.8 MCHC 33.9 RDW 12.5 Plt Count 224 MPV 9.5 Immature Gran % (Auto) 0.5 H Neut % (Auto) 76.3 H Lymph % (Auto) 15.1 L [place] % (Auto) 6.6 Eos % (Auto) 0.8 Baso % (Auto) 0.7 Lymph # (Auto) 1.2 [place] # (Auto) 0.5 Eos # (Auto) 0.1 Baso # (Auto) 0.1 Abs Immat Gran (auto) 0.04 H Absolute Neuts (auto) 5.8 Absolute Nucleated RBC 0.000 Nucleated RBC % (auto) 0.0 Anion Gap 13 12 Estim Creat Clear Calc 93.8 91.8 Estimated GFR > 60 > 60 Random Glucose 94 96 Calcium 9.1 9.2 Total Bilirubin 0.5 0.5 AST 24 22 ALT 16 18 Alkaline Phosphatase 59 57 Total Creatine Kinase 202 H Total Protein 6.8 7.0 Albumin 4.2 4.4 TSH 1.42 Assessment and Plan (1) Seizure: Status: Acute Plan Patient with history of heavy marijuana use, anxiety without prior seizure history was noted to be postictal by his girlfriend and was admitted for seizure workup - # seizure of unclear etiology Although unclear etiology, could be in the setting of marijuana versus stress versus idiopathic however initial imaging negative Neurology consulted We will get brain MRI with and without contrast EEG ordered as per Neurology Advised about marijuana side effects and advised the patient to cut down Patient to be started on levetiracetam 500 mg p.o. b.i.d. after obtaining EEG We will check RUTHY, syphilis, Lyme, HIV DVT prophylaxis with Lovenox to be continued Anxiety -continue home meds This note is constructed using voice recognition software. While every effort has been made to ensure accuracy, prototyper errors may have been included. Quality Stroke Does the patient have a stroke diagnosis?: No VTE Prior VTE?: No VTE Risk Level:: Medical - moderate - high VTE Device Contraindication: Treatment Not Indicated VTE Drug Contraindication: N/A - Med Ordered
[2024-11-27 07:42] VITALS: BP 146/76; PULSE 63; RESP 17; TEMP 36.3; O2SAT 100
--- NOTE | 2024-11-27 08:24 | PM.NEUROCN ---
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 Prior to that, he has been having set of symptoms that he attributed as anxiety attacks. Typically he would suddenly start having a dizzy feeling but not confusion or alteration of consciousness associated with sweating lasting for few minutes. There was no associated cardiac symptom. He was treated with Paxil that has not completely stopped these episodes. The other day he was at home when family noted something wrong and found him on the floor shaking all over. He bit his tongue but did not urinate. It lasted for few sec to a minute or 2 and then in few minutes he was alert and awake. He denied alcohol abuse or any significant head injury. There was no family history of seizure disorder. Review of Systems Review of Systems: No recent cold or flu-like illness or trauma or headache. [facility] Surgical History Surgical History H/O hernia repair S/P ACL surgery Social History Social History Household Members: Spouse and Children Housing: House Do you presently have visiting nurse or other home services: No Patient Tobacco Use Status: Never used Tobacco Smoked in Last 30 Days: No Use of substances other than those prescribed or required for medical reasons: Yes Substance Use Type: Marijuana Currently Displaying Signs/Symptoms of Drug Intoxication Withdrawal: No Have you been hit, kicked, punched, or otherwise hurt by someone within the past year? If so, by whom?: No Do you feel safe in your current relationship?: Yes Is there a partner from a previous relationship who is making you feel unsafe now?: No Are you made to feel afraid or neglected: No Advance Directives: No Advance Directives Information Provided: No Do you have a plan to hurt others: No Plan Recently lost weight without trying: Yes How much weight loss: Unsure Eating poorly because of decreased appetite: Yes Nutrition screen score: 5 Nutrition Risks: Poor intake 0-25% >4 days service: No Meds Allergies Allergy/AdvReac Type Severity Reaction Status Date / Time No Known Allergies Allergy Verified 11/25/24 06:48 Active Medications: Current Medications Acetaminophen (Acetaminophen 325 Mg Tablet) 650 mg PO Q6H PRN PRN Reason: Pain, Mild 1-3,fever,headache Calcium Carbonate (Calcium Carbonate 750 Mg Tab.Chew) 750 mg PO Q4H PRN PRN Reason: Heartburn Enoxaparin Sodium (Enoxaparin Sodium 40 Mg/0.4 Ml Syringe) 40 mg SUBCUT Q24H [facility] Last Admin: 11/26/24 15:09 Dose: 40 mg Ketorolac Tromethamine (Ketorolac Tromethamine 30 Mg/Ml Vial) 30 mg IVPUSH Q6H PRN PRN Reason: Pain, Moderate(Pain Scale 4-6) Last Admin: 11/26/24 22:09 Dose: 30 mg Magnesium Hydroxide (Milk Of Magnesia 30 Ml Oral.Susp) 30 ml PO DAILY PRN PRN Reason: Constipation Melatonin (Melatonin 3 Mg Tablet) 6 mg PO BEDTIME PRN PRN Reason: Insomnia Ondansetron HCl (Ondansetron Hcl 4 Mg/2 Ml Vial) 4 mg IVPUSH Q8H PRN PRN Reason: Nausea and Vomiting Paroxetine HCl (Paroxetine Hcl 10 Mg Tablet) 10 mg PO DAILY [facility] Last Admin: 11/26/24 12:07 Dose: 10 mg Sodium Chloride (0.9 % Sodium Chloride Flush 3 Ml Syringe) 3 ml IVFLUSH QSHIFT [facility] Last Admin: 11/26/24 22:10 Dose: 3 ml Home Medications ?Medication ?Instructions ?Recorded ?Confirmed ?Last Taken ?Type paroxetine HCl 10 mg tablet 10 mg PO QAM 11/25/24 11/25/24 11/24/24 History Physical Exam Vital Signs: Vital Signs: Last Vital Signs Temp 97.4 F 11/27/24 07:42 Pulse 63 11/27/24 07:42 Resp 17 11/27/24 07:42 BP 146/76 H 11/27/24 07:42 Pulse Ox 100 11/27/24 07:42 O2 Del Method Room Air 11/27/24 07:42 BMI result Body Mass Index 23.1 Neuro: Other: He is alert and awake with normal spontaneity of speech fluency comprehension and anxious affect. He had a significant bruise on left side of his tongue. Extraocular muscles were okay. Visual swanson are full. Face is symmetrical. Tongue is midline. There was no focal arm or leg weakness. Plantars are flexor. Speech is normal. Results Labs 11/27/24 06:15 11/27/24 06:15 Labs: Short CBC 11/27/24 Range/Units 06:15 WBC 7.6 (4.8-10.8) X10*3/uL Hgb 15.2 (14.0-18.0) g/dl Hct 44.9 (42.0-52.0) % Plt Count 224 (160-400) X10*3/uL BMP 11/27/24 06:15 Sodium 143 Potassium 3.6 Chloride 107 Carbon Dioxide 28 BUN 26 H Creatinine 0.96 Calcium 9.2 Cardiac Enzymes 11/26/24 Range/Units 06:35 Total Creatine Kinase 202 H (38-174) U/L Liver Function 11/27/24 Range/Units 06:15 Total Bilirubin 0.5 (0.0-1.0) mg/dL AST 22 (5-37) U/L ALT 18 (0-40) U/L Alkaline Phosphatase 57 (39-117) U/L Albumin 4.4 (3.5-5.0) g/dL Head CT did not reveal any significant abnormality. Chest x-ray was okay. Tox screen was positive for benzos and marijuana. Assessment and Plan (1) Seizure: Status: Acute 54 years old man with 1st generalized seizure. He reported few minutes of episodes for about a year, which might also be partial seizures. My recommendation is an MRI of brain with and without contrast and an electroencephalogram. He was educated about this condition and was advised to minimize use of marijuana. 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 Because of the nature of the spell, I recommend starting him on levetiracetam 500 mg twice a day after obtaining EEG. I also recommend antinuclear antibody titer, syphilis test, Lyme test, an HIV test. Procedures Date of Service Date of Service: 11/27/24
[2024-11-27] MEDS: 0.9 % Sodium Chloride Flush 3 ML SYRINGE IVFLUSH ×3 (10:37→21:44)
[2024-11-27 11:29] VITALS: BP 146/73; PULSE 59; RESP 16; TEMP 36.2; O2SAT 99
[2024-11-27 15:29] VITALS: BP 148/68; PULSE 53; RESP 18; TEMP 36.5; O2SAT 100
[2024-11-27 19:13] VITALS: BP 134/73; PULSE 63; RESP 16; TEMP 36.8; O2SAT 97
[2024-11-27 23:16] VITALS: BP 139/66; PULSE 52; RESP 16; TEMP 36.2; O2SAT 99
[2024-11-28 03:36] VITALS: BP 146/70; PULSE 52; RESP 18; TEMP 36.6; O2SAT 98
[2024-11-28 07:07] VITALS: BP 150/78; PULSE 54; RESP 20; TEMP 36.6; O2SAT 98
--- NOTE | 2024-11-28 07:18 | HO.PM.IMPN ---
Subjective Subjective Date of Service: 11/28/24 Physical Exam Vital Signs: Vital Signs: Last Vital Signs Temp 97.8 F 11/28/24 07:07 Pulse 54 11/28/24 07:07 Resp 20 11/28/24 07:07 BP 150/78 H 11/28/24 07:07 Pulse Ox 98 11/28/24 07:07 O2 Del Method Room Air 11/28/24 07:07 BMI result Body Mass Index 23.1 Objective Data Active Medications Acetaminophen (Acetaminophen 325 Mg Tablet) 650 mg PO Q6H PRN PRN Reason: Pain, Mild 1-3,fever,headache Calcium Carbonate (Calcium Carbonate 750 Mg Tab.Chew) 750 mg PO Q4H PRN PRN Reason: Heartburn Enoxaparin Sodium (Enoxaparin Sodium 40 Mg/0.4 Ml Syringe) 40 mg SUBCUT Q24H [facility] Last Admin: 11/27/24 16:21 Dose: 40 mg Documented By: JODY Ketorolac Tromethamine (Ketorolac Tromethamine 30 Mg/Ml Vial) 30 mg IVPUSH Q6H PRN PRN Reason: Pain, Moderate(Pain Scale 4-6) Last Admin: 11/27/24 21:42 Dose: 30 mg Documented By: KELLY Levetiracetam (Levetiracetam 500 Mg Tablet) 500 mg PO BID [facility] Last Admin: 11/27/24 21:57 Dose: Not Given Documented By: KELLY Non-Admin Reason: Hold until after EEG per Neuro Magnesium Hydroxide (Milk Of Magnesia 30 Ml Oral.Susp) 30 ml PO DAILY PRN PRN Reason: Constipation Melatonin (Melatonin 3 Mg Tablet) 6 mg PO BEDTIME PRN PRN Reason: Insomnia Ondansetron HCl (Ondansetron Hcl 4 Mg/2 Ml Vial) 4 mg IVPUSH Q8H PRN PRN Reason: Nausea and Vomiting Paroxetine HCl (Paroxetine Hcl 10 Mg Tablet) 10 mg PO DAILY [facility] Last Admin: 11/27/24 10:36 Dose: 10 mg Documented By: JODY Sodium Chloride (0.9 % Sodium Chloride Flush 3 Ml Syringe) 3 ml IVFLUSH QSHIFT [facility] Last Admin: 11/27/24 21:44 Dose: 3 ml Documented By: KELLY Labs 11/27/24 06:15 11/27/24 06:15 Labs: Laboratory Results - last 24 hr 11/27/24 06:15 Anion Gap 12 Estim Creat Clear Calc 91.8 Estimated GFR > 60 Random Glucose 96 Calcium 9.2 Total Bilirubin 0.5 AST 22 ALT 18 Alkaline Phosphatase 57 Total Protein 7.0 Albumin 4.4 Quality Stroke Does the patient have a stroke diagnosis?: No VTE Prior VTE?: No VTE Risk Level:: Medical - moderate - high VTE Device Contraindication: Treatment Not Indicated VTE Drug Contraindication: N/A - Med Ordered
[2024-11-28 07:21] LABS: MANUAL DIFF FLAG NO
[2024-11-28 07:36] LABS: Hematocrit 42.5 % (42.0-52.0); Hemoglobin 15.0 g/dl (14.0-18.0); Imm Gran Abs Auto 0.04 X10*3/uL (0.00-0.03); Imm Gran Pct Auto 0.5 % (0.0-0.4); Lymphocytes Absolute Auto 1.2 X10*3/uL (1.2-4.9); Mean Corpuscular HGB Conc 35.3 g/dl (31.0-36.0); Mean Corpuscular Hemoglobin 33.4 pg (27.0-33.0); Mean Corpuscular Volume 94.7 fL (80.0-98.0); NRBC Abs Auto 0.000 X10*3/uL (0.0-0.012); NRBC Pct Auto 0.0 /100WBC (0.0-0.2); Platelet Count 212 X10*3/uL (160-400); Red Blood Count 4.49 X10*6/uL (4.60-5.80); White Blood Count 7.7 X10*3/uL (4.8-10.8)
[2024-11-28 07:46] LABS: Alanine Aminotransferase 16 U/L (0-40); Albumin Level 4.2 g/dL (3.5-5.0); Alkaline Phosphatase 54 U/L (39-117); Anion Gap 13 (12-20); Aspartate Amino Transferase 22 U/L (5-37); Blood Urea Nitrogen 29 mg/dL (9-16); Calcium 9.0 mg/dL (8.4-10.2); Carbon Dioxide 25 mmol/L (22-29); Chloride 108 mmol/L (96-108); Creatinine Clr Calc Pharmacy 96.9; Estimated Glomerular Filt Rate > 60; Potassium 3.5 mmol/L (3.3-5.1); Sodium 142 mmol/L (135-145); Total Protein 6.8 g/dL (6.5-8.0)
[2024-11-28] MEDS: 0.9 % Sodium Chloride Flush 3 ML SYRINGE IVFLUSH (08:40)
[2024-11-28 08:54] LABS: HIV Num 1 0.06 S/CO (0.00-0.99)
--- NOTE | 2024-11-28 08:57 | EEG_ITS ---
Study Performed on 1 st floor Reason For EEG: Seizure Medications: acetaminophen, calcium, enoxaparin, ketorolac tromethamine, magnesium, melatonin, ondansetron, paroxetine, sodium chloride History: pt found Wednesday morning on the floor shaking all over - tongue biting noted - pt did not urinate - pt was confused afterwards - pt noted to have episodes previously of dizziness and sweating that lasts for a few minutes [employer] Teacher Comments: Photic stimulation: Completed Hyperventilation: Performed Behavioral State: During HV pt had the anxious feeling come over him- he was able to keep performing hyperventilation task during this time - episode lasted <1 min of symptom State of Consciousness: awake brief drowsy Skull defect: No Sedation: No Duration of study: 26 Min 53 Sec Interpretation: This is a 16 channel EEG with an EKG lead. Patient is reported awake with some drowsiness. Background EEG rhythm is about 10 hertz 5-50 microvolt posteriorly and lower amplitude fast anteriorly. Photic stimulation does not produce any significant abnormality. During hyperventilation, asymmetric right hemispheric theta range slowing was noted with intermittent right frontotemporal sharp waves. During later part of the study similar right frontotemporal sharp waves were again noted with localization probably to F8. Cardiac lead did not reveal any significant abnormality. Impression: Abnormal EEG revealing right frontotemporal seizure focus. MTDD
[2024-11-28 09:02] LABS: Syphilis Screen Nonreactive (Nonreactive)
--- NOTE | 2024-11-28 09:34 | MHC.CM.PN ---
Per MD, Patient is being switched from OBSERVATION to INPATIENT.
--- NOTE | 2024-11-28 10:18 | MHC.CM.PN ---
Patient has been medically cleared for dc to home today, self care.
--- NOTE | 2024-11-28 10:33 | P.DS_ITS ---
DS: Providers Provider Date of Service: 11/28/24 Date of admission: 11/28/24 09:21 Date of discharge: 11/28/24 Primary care physician: Unknown Physician Consults: 11/25/24 13:17 Consult to Neurology Routine Consulting Provider: [facility] Reason for consultation: possible new onset seizure DS: Diagnosis Discharge Diagnosis (1) Seizure: Status: Acute DS: Summary Hospital Course Time spent discussing smoking cessation with patient: more than 10 minutes Time Attestation Discharge Coordination Time (in mins): 35 Quality: Safe Use of Opioids Does Pt have an Active Cancer Diagnosis on the Problem List?: No Quality: Stroke Does the patient have a stroke diagnosis?: No Physical Exam Exam: Exam: General: AOx3, no acute distress Resp: CTA bilaterally CVS: S1, S2, RRR GI: +BS, NT, no distention Skin: Warm, dry Neuro: Cranial nerves II-XII grossly intact bilaterally. Motor grossly intact bilaterally Extremities: No edema Psych: Appropriate affect Vital Signs: Vital Signs: Last Vital Signs Temp 97.8 F 11/28/24 07:07 Pulse 54 11/28/24 07:07 Resp 20 11/28/24 07:07 BP 150/78 H 11/28/24 07:07 Pulse Ox 98 11/28/24 07:07 O2 Del Method Room Air 11/28/24 07:07 BMI result Body Mass Index 23.1 DS: Data Data Completed and Pending Labs on day of discharge: Laboratory Results - last 24 hr 11/27/24 11/27/24 11/28/24 16:48 17:02 06:29 WBC 7.7 RBC 4.49 L Hgb 15.0 Hct 42.5 MCV 94.7 MCH 33.4 H MCHC 35.3 RDW 12.2 Plt Count 212 MPV 9.6 Immature Gran % (Auto) 0.5 H Neut % (Auto) 75.5 H Lymph % (Auto) 15.7 L [place] % (Auto) 6.9 Eos % (Auto) 0.9 Baso % (Auto) 0.5 Lymph # (Auto) 1.2 [place] # (Auto) 0.5 Eos # (Auto) 0.1 Baso # (Auto) 0.0 Abs Immat Gran (auto) 0.04 H Absolute Neuts (auto) 5.8 Absolute Nucleated RBC 0.000 Nucleated RBC % (auto) 0.0 Sodium 142 Potassium 3.5 Chloride 108 Carbon Dioxide 25 Anion Gap 13 BUN 29 H Creatinine 0.91 Estim Creat Clear Calc 96.9 Estimated GFR > 60 Random Glucose 89 Calcium 9.0 Total Bilirubin 0.5 AST 22 ALT 16 Alkaline Phosphatase 54 Total Protein 6.8 Albumin 4.2 T.pallidum Ab (EIA) Nonreactive HIV 1&2 Ab/P24 Ag 4thGn Nonreactive Discharge Plan Discharge Anticipated Discharge Date/Time: 11/28/24 10:02 Patient Disposition: Home, Self-Care Discharge Diagnosis: Seizure in the setting of marijuana and anxiety Referrals: Jemal Mondragon MD [Physician, Neurology] - 1 Week Referral Note: New onset seizure workup Started on Keppra this admission Stanislaw Prado MD [Physician, Neurology] - 1 Week PhysicianRupert [Primary Care Provider, Medical] - 1 Week Discharge Medications: New levetiracetam 500 mg Tablet 500 mg PO BID 30 Days Qty: 60 3RF Continued paroxetine HCl 10 mg tablet 10 mg PO QAM Discharge Orders: Discharge Order (Routine); Ordered 11/28/24 Ordered By: Gladys Mota Diet: Advance to usual diet Activity on Discharge: As tolerated Stand Alone Forms: Patient Portal Discharge page Print Language: Thai Care Plan Goals: Patient has been seizure-free since admission EEG unremarkable Has been started on Keppra 500 b.i.d. Follow-up with primary care and neurology outpatie Health Concerns: Patient has been seizure-free since admission EEG unremarkable Has been started on Keppra 500 b.i.d. Follow-up with primary care and neurology outpatie Plan of Treatment: Patient has been seizure-free since admission EEG unremarkable Has been started on Keppra 500 b.i.d. Follow-up with primary care and neurology outpatie Assessment: Patient has been seizure-free since admission EEG unremarkable Has been started on Keppra 500 b.i.d. Follow-up with primary care and neurology outpatient Patient Instructions: Levetiracetam (By mouth) (Keppra, Keppra XR, Spritam, Elepsia XR), Epilepsy (IP), Epilepsy in Older Adults (DC), New-Onset Seizure in Adults (GEN)
[2024-11-28 13:29] LABS: Lyme Abs Screen <0.90 index
[2024-11-29 10:53] LABS: Anti Nuclear Antibody Screen NEGATIVE (NEGATIVE)
== END 2024-11-28 12:37 | disposition home or self-care (01) | DRG 53 ==
LOC: HO.ED 08:15 → HO.EDOVER 11:36 → HO.IMC 17:37
PROVIDERS: Admitting Provider Nurse Practitioner Acute Care; Emergency Provider Emergency Medicine; Visit Provider Student in an Organized Health Care Education/Training Program
DX: R56.9 Unspecified convulsions (principal); F12.90 Cannabis use, unspecified, uncomplicated; F41.9 Anxiety disorder, unspecified; Z79.899 Other long term (current) drug therapy
CPT/HCPCS: 36415; 70450; 70553; 71045; 80048; 80053; 80076; 80307; 81001; 82550; 82803; 82947; 83605; 83735; 84443; 85025; 85027; 86038; 86140; 86617; 86618; 86780; 87389; 93005; 95816; 99222; 99285; A9585; J1650; J1885; J3360

== ENCOUNTER → 2024-11-25 06:42 | Outpatient (BNV) | payer BC, SELFPAY | PROVIDERS: Emergency Provider Emergency Medicine; Visit Provider Internal Medicine Cardiovascular Disease | DX: R55 Syncope and collapse (principal) | CPT/HCPCS: 93010 ==

== ENCOUNTER → 2024-11-25 06:51 | Outpatient (BNV) | payer BC, SELFPAY | PROVIDERS: Emergency Provider Emergency Medicine; Visit Provider Radiology Diagnostic Radiology | DX: R41.82 Altered mental status, unspecified (principal); R41.0 Disorientation, unspecified | CPT/HCPCS: 70450; 71045 ==

== ENCOUNTER 2024-11-25 11:33 | Outpatient (BNV) | payer BC, SELFPAY | END 2024-11-27 17:21 | PROVIDERS: Admitting Provider Nurse Practitioner Acute Care; Emergency Provider Emergency Medicine; Visit Provider Specialist | DX: R56.9 Unspecified convulsions (principal) | CPT/HCPCS: 70553 ==

== ENCOUNTER → 2024-11-25 11:33 | Outpatient (BNV) | payer BC, SELFPAY | PROVIDERS: Admitting Provider Nurse Practitioner Acute Care; Emergency Provider Emergency Medicine; Visit Provider Student in an Organized Health Care Education/Training Program | DX: R56.9 Unspecified convulsions (principal) | CPT/HCPCS: 99223; 99232; 99239 ==

== ENCOUNTER → 2024-11-25 11:33 | Outpatient (BNV) | payer BC, SELFPAY | PROVIDERS: Admitting Provider Nurse Practitioner Acute Care; Emergency Provider Emergency Medicine; Visit Provider Psychiatry & Neurology Neurology | DX: R56.9 Unspecified convulsions (principal) | CPT/HCPCS: 99253 ==

== ENCOUNTER → 2024-11-28 08:57 | Outpatient (BNV) | payer BC, SELFPAY | PROVIDERS: Admitting Provider Nurse Practitioner Acute Care; Emergency Provider Emergency Medicine; Visit Provider Psychiatry & Neurology Neurology | DX: R56.9 Unspecified convulsions (principal) | CPT/HCPCS: 95816 ==

== ENCOUNTER 2025-01-17 15:59 | Outpatient (AMB) | payer BC, SELFPAY ==
--- NOTE | 2025-01-17 15:47 | MHC.OFFVIS ---
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 Prior to that, he has been having set of symptoms that he attributed as anxiety attacks. Typically he would suddenly start having a dizzy feeling but not confusion or alteration of consciousness associated with sweating lasting for a few minutes. There was no associated cardiac symptom. He was treated with Paxil that did not completely stopped these episodes. One episode happened in Nov 2024, when he was at home. His family noted something wrong and found him on the floor shaking all over. He had bit his tongue but did not urinate. It lasted for few sec to a minute or 2 and then in few minutes he was alert and awake. He denied alcohol abuse or any significant head injury. There was no family history of seizure disorder. He is presenting with seizures. He reports a significant reduction in frequency of seizures after starting on antiepileptic medication, with current episodes reducing from 20-30 times daily to occasional thought-like anticipations approximately seven times since the initiation of treatment. The improvement is attributed to medication therapy. Additionally, the patient has a history of a rotator cuff injury, which is impacting his ability to use his shoulder adequately, and he is scheduled to undergo surgical intervention to address this. [facility], [facility] Surgical History H/O hernia repair S/P ACL surgery Social History Household Members: Spouse and Children Housing: House Do you presently have visiting nurse or other home services: No Comment: refusing alarms Patient Tobacco Use Status: Never used Tobacco Substance Use Type: Marijuana service: No Review of Systems Narrative - Neurological: Reports reduction in seizure frequency with medication. Denies any recent full seizure episodes. - Musculoskeletal: Reports rotator cuff injury, scheduled for surgery. Physical Exam Neuro Other: Mental Status: Alert and oriented to person, place, and time. Normal attention. Normal spontaneous speech, fluency, and comprehension. No obvious issues with mood and memory. Affect is appropriate. Cranial Nerves: CN II: Visual swanson full to confrontation, visual acuity intact. CN III, IV, : Pupils equal, round, reactive to light and accommodation. Extraocular movements are normal. CN V: Facial sensation is normal. CN VII: Facial movements symmetrical. CN VIII: Hearing intact to bedside conversation is normal. CN IX, X: Palate elevates symmetrically. CN XI: Shoulder shrug and head turn symmetrical. CN XII: Tongue midline without atrophy or fasciculations. Coordination: [id number] and [id number] testing normal. No dysmetria. Gait and Station: No obvious gait abnormality. No ataxia or instability. Extrapyramidal: Full facial expressions and blinking. No rigidity. Movements are appropriate with no tremor or abnormality. Speech: Normal; no dysarthria or tremor. Assessment & Plan Assessment & Plan (1) Generalized seizure disorder: Comment: Routine EEG at [facility] in Nov 2024: R FT epileptic discharges CT brain WO at [facility] in Nov 2024: [place] MRI brain WWO at [facility] in Nov 2024: [place] Code(s): G40.309 - Generalized idiopathic epilepsy and epileptic syndromes, not intractable, without status epilepticus Category: Medical Plan Impression: Generalized seizure disorder Rec: 1. Levetiracetam 750mg bid 2. EEG 2 weeks after changed dose 3. No driving and avoiding activity that could put life in danger such as swimming alone or sitting in a soaking tub alone. Driving can be started after 6 months of being seizure-free. 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
--- OUTSIDE RECORDS SUMMARY | 2025-01-17 18:48 | XMS_ITS | Clinical Summary ---
Author Organization [facility] Address [address] [place] [address] Phone Care Team Providers Care Travelers' Aid Worker Name Role Phone Eliza Varghese MD Primary Care Provider [phone] Allergies Active Allergy Reactions Criticality Noted Date Comments Other 01/24/2024 Medications EPINEPHrine (EpiPen 2-Bola) 0.3 mg/0.3 mL injection Inject 0.3 mL (0.3 mg total) into the thigh if needed for anaphylaxi s. 1 each 1 5 Active levETIRAcetam (KEPPRA) 500 mg tablet Take 1 tablet (500 mg total) by mouth 2 (two) times a day. 5 Active PARoxetine (PAXIL) 10 mg tablet TAKE 1 TABLET (10 MG TOTAL) BY MOUTH 1 (ONE) TIME EACH DAY IN THE MORNING. 90 tablet 1 5 Active PARoxetine (PAXIL) 10 mg tablet Take 1 tablet (10 mg total) by mouth 1 (one) time each day in the morning. for 180 days 90 each 1 5 12/30/19 25 Discontinued Active Problems Problem Noted Date Diagnosed Date Seizure (CMS/HCC V24, CMS/HCC V28) 12/06/2024 Overview (12/06/2024): Witnessed, EEG proven. Please see note December 06, 2024 Anxiety with depression 12/06/2024 Hyperhidrosis 06/18/2024 Marijuana use 04/11/2020 MRSA (methicillin resistant staph aureus) cultur e positive 06/01/2017 ACL tear 02/03/2013 Encounters Date Type Department Care Team Description 12/28/2024 3:30 PM EDT Office Visit Adult [address] [phone] Eliza Varghese MD Anxiety with depression (Primary Dx); Seizure (CMS/HCC V24, CMS/HCC V28) 12/06/2024 10:30 AM EDT Office Visit [address] [phone] Eliza Varghese MD Seizure (CMS/HCC V24, CMS/HCC V28) (Primary Dx); Marijuana use; Stress at work; Anxiety with depression; Chronic left shoulder pain 11/29/2024 Telephone Adult [address] [phone] Eliza Varghese MD from Last 3 Months Immunizations Immunization Administration Dates Next Due Influenza trivalent, with pr eservative (Fluzone; Afluria) 6mo and older 03/11/2020 Pneumococcal conjugate 20 va lent (Prevnar 20, PCV 20) 2mo and older 06/19/2024 TD, Adsorbed, Preservative Free 10/17/2021 Td Tetanus diptheria (Tdvax) 7yo and older 02/28 Surgical History Surgery Date Site/Laterality Comments OTHER SURGICAL HISTORY PROCEDURE: NV NEUROPLASTY &/TRANSPOSITION ULNAR NERVE ELBOW ROTATOR CUFF [...] Safety Answer Date Record ed Physical Abuse Unrecognized value 01/24/2024 Verbal Abuse Unrecognized value 01/24/2024 Sex and Gender Information Value Date Recorded Sex Assigned at Male 01/14/2024 2:55 PM EDT Legal Sex Male 1:16 PM EST Gender Identity Male 01/14/2024 2:55 PM EDT Sexual Orientation Straight 01/14/2024 2: 55 PM EDT Obstetrics History Last Filed Vital Signs Vital Sign Reading Time Taken Comments Blood Pressure 112/60 12/28/2024 3:23 PM EDT Pulse 55 12/28/2024 3:23 PM EDT Temperature 36.4 C (97.5 F) 12/28/2024 3:23 PM EDT Respiratory Rate 12 12/28/2024 3:23 PM EDT Oxygen Saturation 98% 12/06/2024 10: 21 AM EDT Inhaled Oxygen Concentration - - Weight 73.5 kg (162 lb) 12/28/2024 3:23 PM EDT pt wearing steal-toed boots - was unwilling to take them off for weight Height 170.2 cm (5' 7 ) 12/28/2024 3:23 PM EDT Body Mass Index 25.37 12/28/2024 3:23 PM EDT Plan of Treatment Upcoming Encounters Date Type Department Care Team (Late st Contact Info) Description 07/02/2025 4:00 PM EDT Office Visit Adult Medicine [facility] [address] [place] [address] Eliza Varghese MD [address] [place] [address] Health Maintenance Due Date Last Done Comments Zoster Vaccines (1 of 2) 2021 Social Influencers of Health Screening 02/10/2022 Depression Screening 03/15/2024 Influenza Vaccine (#1) 2024 03/11/2020 Colorectal Cancer Screening: Colonoscopy 01/23/2029 01/24/2024 Cholesterol Screening (Lipid Panel) 06/29/2029 06/29/2024, 10/29/2023, 10/29/2023 DTaP,Tdap,and Td Vaccines (3 - Td or Tdap) 10/18/2031 10/17/2021, 02/28/2014 RSV Immunization Adult Patients (1 - 1-dose 75+ series) 2046 Hepatitis C Screening Completed 05/17/2019 COVID-19 Vaccine [...] LAB CHEMISTRY METHOD 06/29/2024 5:36 PM EDT [facility] Triglycerides 242(H) 0 - 150 mg/dL LAB CHEMISTRY METHOD 06/29/2024 5:36 PM EDT [facility] HDL 39(L) >=40 mg/dL LAB CHEMISTRY METHOD 06/29/2024 5:36 PM EDT [facility] LDL Calculated 122(H) 0 - 100 mg/dL LAB CHEMISTRY METHOD 06/29/2024 5:36 PM EDT [facility] VLDL Cholesterol Gerry 48.4 mg/dL LAB CHEMISTRY METHOD 06/29/2024 5:36 PM EDT [facility] Non HDL Chol. (LDL+VLDL) 170(H) <145 mg/dL LAB CHEMISTRY METHOD 06/29/2024 5:36 PM EDT [facility] Chol/HDL Ratio 5.4(H) 0.0 - 4.4 LAB CHEMISTRY METHOD 06/29/2024 5:36 PM EDT [facility] Blood Venous blood specimen / Unknown Venipuncture / Unknown 06/29/2024 2:30 PM EDT 06/29/2024 2:30 PM EDT Shazia Adamson [employer] LAB BLOOD ORDERABLES Final R esult [facility] [address] [place] [address], [place] [phone] * COLONOSCOPY Anesthesia - MAC; [facility] ENDOSCOPY (01/24/2024 3:20 PM EST) Anatomical Region Laterality Modality Other 01/24/2024 3:08 PM EST Narrative 01/24/2024 3:23 PM EST [facility] Patient Name: Roshan Denise Procedure [...] for surveillance. Procedure Code(s): --- Professional --- 78251, Colonoscopy, flexible; with removal of tumor(s), polyp(s), or other lesion(s) by snare technique Diagnosis Code(s): --- Professional --- Z12.11, Encounter for screening for malignant neoplasm of colon K64.0, First degree hemorrhoids D12.4, Benign neoplasm of descending colon D12.3, Benign neoplasm of transverse colon (hepatic flexure or splenic flexure) CPT copyright 1 [employer]. All rights reserved. The codes documented in this report are preliminary and upon forming fixer review may be revised to meet current compliance requirements. Adria Baca MD Adria Baca MD 01/24/2024 3:23:01 PM This report has been signed electronically.Adria Baca MD Number of Addenda: 0 Note Initiated On: 01/24/2024 3:08 PM Scope In: Scope Out: Endoscopy Department at [facility] - [address] [place] [phone] Procedure Note Adria Baca MD - 01/24/2024 [facility] Patient Name: Roshan Denise Procedure [...] for surveillance. Procedure Code(s): --- Professional --- 70397, Colonoscopy, flexible; with removal of tumor(s), polyp(s), or other lesion(s) by snare technique Diagnosis Code(s): --- Professional --- Z12.11, Encounter for screening for malignantneoplasm of colon K64.0, First degree hemorrhoids D12.4, Benign neoplasm of descending colon D12.3, Benign neoplasm of transverse colon (hepatic flexure or splenic flexure) CPT copyright 2020 [employer]. All rights reserved. The codes documented in this report are preliminary and upon forming fixer reviewmay be revised to meet current compliance requirements. Adria Baca MD Adria Baca MD 01/24/2024 3:23:01 PM This report has been signed electronically.Adria Baca MD Number of Addenda: 0 Note Initiated On: 01/24/2024 3:08 PM Scope In: Scope Out: Endoscopy Department at [facility] - [address] [place] [phone] us Adria Baca MD GI~PROCEDURE ORDERABLES Final Re sult * Hm Hepatitis C Screening (05/17/2019) Hepatitis C Screening Abstracted us Historical Provider HEALTH MAINTENANCE Final Result from Last 3 Months or Most Recently Relevant to Health Maintenance Insurance [facility] Care Teams Travelers' Aid Worker Relationship Specialty Start Date End Date Eliza Varghese MD [address] [facility] [place] [address] PCP - General Internal Medicine 12/26/20
== END 2025-01-17 16:22 | disposition home or self-care (01) ==
LOC: HO.HSM 16:00
PROVIDERS: Visit Provider Psychiatry & Neurology Neurology
DX: G40.309 Generalized idiopathic epilepsy and epileptic syndromes, not intractable, without status epilepticus (principal)
CPT/HCPCS: 99214

== ENCOUNTER 2025-02-15 08:18 | Outpatient (REF) | payer BC, SELFPAY ==
--- NOTE | 2025-02-15 08:31 | EEG_ITS ---
History: Anxiety, seizure Medication: Levetiracetam Technical description:? Behavioral state: Cooperative State of Consciousness: Awake Skull defect: None Sedation: None Handedness: Right Duration of study: 30:43 Last Event: 11/24/24 Diary entries / Symptoms: anxiety attacks, dizzy feeling but not confusion or alteration of consciousness, sweating lasting for a few minutes. ? Description: This is a 16 channel EEG with an EKG lead. Patient is awake during the tracing. Background EEG rhythm is 12-14 Hz, 5-30 mV posteriorly and lower amplitude faster anteriorly. Photic stimulation did not produce significant driving. No asymmetry, sharp waves, spikes, or paroxysmal activity noted. EKG lead did not reveal any significant abnormality. Impression: Unremarkable EEG. MTDD
--- OUTSIDE RECORDS SUMMARY | 2025-02-15 08:35 | XMS_ITS | Clinical Summary ---
Author Organization [facility] Address [address] [place] [address] Phone Care Team Providers Care Internet Project Manager Name Role Phone Eliza Varghese MD Primary Care Provider [phone] Allergies Active Allergy Reactions Criticality Noted Date Comments Other 01/24/2024 Medications EPINEPHrine (EpiPen 2-Bola) 0.3 mg/0.3 mL injection Inject 0.3 mL (0.3 mg total) into the thigh if needed for anaphylaxis . 1 each 1 06/19/2024 Active levETIRAcetam (KEPPRA) 500 mg tablet Take 1 tablet (500 mg total) by mouth 2 (two) times a day. 11/28/2024 Active PARoxetine (PAXIL) 10 mg tablet TAKE 1 TABLET (10 MG TOTAL) BY MOUTH 1 (ONE) TIME EACH DAY IN THE MORNING. 90 tablet 1 12/29/2024 Active Active Problems Problem Noted Date Diagnosed Date Seizure ([facility] V24, [facility] V28) 12/06/2024 Overview (12/06/2024): Witnessed, EEG proven. Please see note December 06, 2024 Anxiety with depression 12/06/2024 Hyperhidrosis 06/18/2024 Marijuana use 04/11/2020 MRSA (methicillin resistant staph aureus) cultur e positive 06/01/2017 ACL tear 02/03/2013 Encounters Date Type Department Care Team Description 12/28/2024 3:30 PM EDT Office Visit Adult Medicine [address] [phone] Eliza Varghese MD Anxiety with depression (Primary Dx); Seizure (CMS/HCC V24, CMS/HCC V28) 12/06/2024 10:30 AM EDT Office Visit Adult Medicine [address] [phone] Eliza Varghese MD Seizure (CMS/HCC V24, CMS/HCC V28) (Primary Dx); Marijuana use; Stress at work; Anxiety with depression; Chronic left shoulder pain 11/29/2024 Telephone Adult [address] [phone] Eliza Varghese MD from Last 3 Months Immunizations Immunization Administration Dates Next Due Influenza trivalent, with pr eservative (Fluzone; Afluria) 6mo and older 03/11/2020 Pneumococcal conjugate 20 va lent (Prevnar 20, PCV 20) 2mo and older 06/19/2024 TD, Adsorbed, Preservative Free 10/17/2021 Td Tetanus diptheria (Tdvax) 7yo and older 02/28 Surgical History Surgery Date Site/Laterality Comments OTHER SURGICAL HISTORY PROCEDURE: [place] NEUROPLASTY &/TRANSPOSITION ULNAR NERVE ELBOW ROTATOR CUFF [...] 4:00 PM EDT Office Visit [place] [facility] [address] [place] [address] Eliza Varghese MD [address] [place] [phone] Health Maintenance Due Date Last Done Comments [...] 01/24/2024 3:20 PM EST Colon cancer screening HEPATITIS C SCREENING Routine 05/17/2019 from Last 3 Months or Most Recently Relevant to Health Maintenance Results * (ABNORMAL) Lipid panel with reflex to direct LDL (06/29/2024 2:30 PM EDT) Cholesterol 209(H) 0 - 200 mg/dL LAB CHEMISTRY METHOD 06/29/2024 5:36 PM EDT [facility] Triglycerides 242(H) 0 - 150 mg/dL LAB CHEMISTRY METHOD 06/29/2024 5:36 PM EDT [facility] HDL 39(L) >=40 mg/dL LAB CHEMISTRY METHOD 06/29/2024 5:36 PM EDT [facility] LDL Calculated 122(H) 0 - 100 mg/dL LAB CHEMISTRY METHOD 06/29/2024 5:36 PM EDT [facility] VLDL Cholesterol Gerry 48.4 mg/dL LAB CHEMISTRY METHOD 06/29/2024 5:36 PM EDT [facility] Non HDL Chol. (LDL+VLDL) 170(H) <145 mg/dL LAB CHEMISTRY METHOD 06/29/2024 5:36 PM EDT [facility] Chol/HDL Ratio 5.4(H) 0.0 - 4.4 LAB CHEMISTRY METHOD 06/29/2024 5:36 PM EDT [facility] Blood Venous blood specimen / Unknown Venipuncture / Unknown 06/29/2024 2:30 PM EDT 06/29/2024 2:30 PM EDT us Shazia Adamson SOCIAL SERVICE MANAGER LAB BLOOD ORDERABLES Final R esult [facility] [address] [place] [address], * COLONOSCOPY Anesthesia - MAC; [facility] ENDOSCOPY (01/24/2024 3:20 PM EST) Anatomical Region Laterality Modality Other 01/24/2024 3:08 PM EST Narrative 01/24/2024 3:[address] [facility] GI Patient Name: Roshan Denise Procedure Date: [...] for surveillance. Procedure Code(s): --- Professional --- 58098, Colonoscopy, flexible; with removal of tumor(s), polyp(s), or other lesion(s) by snare technique Diagnosis Code(s): --- Professional --- Z12.11, Encounter for screening for malignant neoplasm of colon K64.0, First degree hemorrhoids D12.4, Benign neoplasm of descending colon D12.3, Benign neoplasm of transverse colon (hepatic flexure or splenic flexure) CPT copyright 2020 [employer]. All rights reserved. The codes documented in this report are preliminary and upon relay assembler review may be revised to meet current compliance requirements. Adria Baca MD Adria Baca MD 01/24/2024 3:23:01 PM This report has been signed electronically.Adria Baca MD Number of Addenda: 0 Note Initiated On: 01/24/2024 3:08 PM Scope In: Scope Out: Endoscopy Department at [facility] - [address] [place] [phone] Procedure Note Adria Baca MD - 01/24/[address] [facility] GI Patient Name: Roshan Denise Procedure Date: [...] for surveillance. Procedure Code(s): --- Professional --- 93217, Colonoscopy, flexible; with removal of tumor(s), polyp(s), or other lesion(s) by snare technique Diagnosis Code(s): --- Professional --- Z12.11, Encounter for screening for malignantneoplasm of colon K64.0, First degree hemorrhoids D12.4, Benign neoplasm of descending colon D12.3, Benign neoplasm of transverse colon (hepatic flexure or splenic flexure) CPT copyright 2020 [employer]. All rights reserved. The codes documented in this report are preliminary and upon relay assembler reviewmay be revised to meet current compliance requirements. Adria Baca MD Adria Baca MD 01/24/2024 3:23:01 PM This report has been signed electronically.Adria Baca MD Number of Addenda: 0 Note Initiated On: 01/24/2024 3:08 PM Scope In: Scope Out: Endoscopy Department at [facility] - [address] [place] [phone] us Adria Baca MD GI~PROCEDURE ORDERABLES Final Re sult * Hepatitis C Screening (05/17/2019) Hepatitis C Screening Abstracted us Historical Provider HEALTH MAINTENANCE Final Result from Last 3 Months or Most Recently Relevant to Health Maintenance Insurance [facility] Care Teams Internet Project Manager Relationship Specialty Start Date End Date Eliza Varghese MD [address] [facility] [place] [address] PCP - General Internal Medicine 12/26/20
== END 2025-02-15 08:19 | disposition home or self-care (01) ==
LOC: HO.NEURO 08:18
PROVIDERS: PCP Internal Medicine; Visit Provider Psychiatry & Neurology Neurology
DX: G40.309 Generalized idiopathic epilepsy and epileptic syndromes, not intractable, without status epilepticus (principal)
CPT/HCPCS: 95816

== ENCOUNTER → 2025-02-15 08:31 | Outpatient (BNV) | payer BC, SELFPAY | PROVIDERS: PCP Internal Medicine; Visit Provider Psychiatry & Neurology Neurology | DX: G40.309 Generalized idiopathic epilepsy and epileptic syndromes, not intractable, without status epilepticus (principal) | CPT/HCPCS: 95816 ==

== ENCOUNTER 2025-02-19 07:47 | Outpatient (AMB) | payer BC, SELFPAY ==
--- OUTSIDE RECORDS SUMMARY | 2025-02-19 07:53 | XMS_ITS | Clinical Summary ---
Author Organization [facility] Address [address] [place] [address] Phone Care Team Providers Care Screw Machine Adjuster Automatic Name Role Phone Eliza Varghese MD Primary Care Provider [phone] Allergies Active Allergy Reactions Criticality Noted Date [...] Problems Problem Noted Date Diagnosed Date Seizure 12/06/2024 Overview (12/06/2024): Witnessed, EEG proven. Please see note December 06, 2024 Anxiety with depression 12/06/2024 Hyperhidrosis 06/18/2024 Marijuana use 04/11/2020 MRSA (methicillin resistant staph aureus) cultur e positive 06/01/2017 ACL tear 02/03/2013 Encounters Date Type Department Care Team Description 12/28/2024 3:30 PM EDT Office Visit Adult Medicine [address] [phone] Eliza Varghese MD Anxiety with depression (Primary Dx); Seizure (CMS/HCC V24, CMS/HCC V28) 12/06/2024 10:30 AM EDT Office Visit Adult Medicine [address] [phone] Eliza Varghese MD Seizure (CMS/HCC V24, CMS/HCC V28) (Primary Dx); Marijuana use; Stress at work; Anxiety with depression; Chronic left shoulder pain 11/29/2024 Telephone Adult Medicine [address] [phone] Eliza Varghese MD from Last 3 Months [...] Orientation Straight 01/14/2024 2: 55 PM EDT Last Filed Vital Signs Vital Sign Reading [...] 4:00 PM EDT Office Visit Adult Medicine [facility] [place] [address] [place] [address] Eliza Varghese MD [address] [place] [address] Health Maintenance Due Date Last Done Comments [...] LAB CHEMISTRY METHOD 06/29/2024 5:36 PM EDT [facility] Triglycerides 242(H) 0 - 150 mg/dL LAB CHEMISTRY METHOD 06/29/2024 5:36 PM EDT [facility] HDL 39(L) >=40 mg/dL LAB CHEMISTRY METHOD 06/29/2024 5:36 PM EDT [facility] LDL Calculated 122(H) 0 - 100 mg/dL LAB CHEMISTRY METHOD 06/29/2024 5:36 PM EDT [facility] VLDL Cholesterol Gerry 48.4 mg/dL LAB CHEMISTRY METHOD 06/29/2024 5:36 PM EDT [facility] Non HDL Chol. (LDL+VLDL) 170(H) <145 mg/dL LAB CHEMISTRY METHOD 06/29/2024 5:36 PM EDT [facility] Chol/HDL Ratio 5.4(H) 0.0 - 4.4 LAB CHEMISTRY METHOD 06/29/2024 5:36 PM EDT [facility] Blood Venous blood specimen / Unknown Venipuncture / Unknown 06/29/2024 2:30 PM EDT 06/29/2024 2:30 PM EDT us Shazia Adamson PROFILE SAW OPERATOR LAB BLOOD ORDERABLES Final R esult [facility] [address] [place] [address], [place] [phone] * COLONOSCOPY Anesthesia - MAC; [facility] ENDOSCOPY (01/24/2024 3:20 PM EST) Anatomical Region Laterality Modality Other 01/24/2024 3:08 PM EST Narrative 01/24/2024 3:23 PM EST [facility] GI Patient Name: Roshan Denise Procedure [...] for surveillance. Procedure Code(s): --- Professional --- 57982, Colonoscopy, flexible; with removal of tumor(s), polyp(s), or other lesion(s) by snare technique Diagnosis Code(s): --- Professional --- Z12.11, Encounter for screening for malignant neoplasm of colon K64.0, First degree hemorrhoids D12.4, Benign neoplasm of descending colon D12.3, Benign neoplasm of transverse colon (hepatic flexure or splenic flexure) CPT copyright 2020 [employer]. All rights reserved. The codes documented in this report are preliminary and upon family protection specialist review may be revised to meet current compliance requirements. Adria Baca MD Adria Baca MD 01/24/2024 3:23:01 PM This report has been signed electronically.Adria Baca MD Number of Addenda: 0 Note Initiated On: 01/24/2024 3:08 PM Scope In: Scope Out: Endoscopy Department at [facility] - [address] [place] [phone] Procedure Note Adria Baca MD - 01/24/2024 [facility] GI Patient Name: Roshan Denise Procedure [...] for surveillance. Procedure Code(s): --- Professional --- 99371, Colonoscopy, flexible; with removal of tumor(s), polyp(s), or other lesion(s) by snare technique Diagnosis Code(s): --- Professional --- Z12.11, Encounter for screening for malignantneoplasm of colon K64.0, First degree hemorrhoids D12.4, Benign neoplasm of descending colon D12.3, Benign neoplasm of transverse colon (hepatic flexure or splenic flexure) CPT copyright 2020 [employer]. All rights reserved. The codes documented in this report are preliminary and upon family protection specialist reviewmay be revised to meet current compliance requirements. Adria Baca MD Adria Baca MD 01/24/2024 3:23:01 PM This report has been signed electronically.Adria Baca MD Number of Addenda: 0 Note Initiated On: 01/24/2024 3:08 PM Scope In: Scope Out: Endoscopy Department at [facility] - [address] [place] [phone] Adria Baca MD GI~PROCEDURE ORDERABLES Final Re sult * Hepatitis C Screening (05/17/2019) Hepatitis C Screening Abstracted Historical Provider HEALTH MAINTENANCE Final Result from Last 3 Months or Most Recently Relevant to Health Maintenance Insurance [facility] Care Teams Screw Machine Adjuster Automatic Relationship Specialty Start Date End Date Eliza Varghese MD [address] [place] [address] PCP - General Internal Medicine 12/26/20
--- NOTE | 2025-02-19 08:02 | MHC.OFFVIS ---
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 Prior to that, he has been having set of symptoms that he attributed as anxiety attacks. Typically he would suddenly start having a dizzy feeling but not confusion or alteration of consciousness associated with sweating lasting for a few minutes. There was no associated cardiac symptom. He was treated with Paxil that did not completely stopped these episodes. One episode happened in Nov 2024, when he was at home. His family noted something wrong and found him on the floor shaking all over. He had bit his tongue but did not urinate. It lasted for few sec to a minute or 2 and then in few minutes he was alert and awake. He denied alcohol abuse or any significant head injury. There was no family history of seizure disorder. After treatment with levetiracetam, symptoms were completely controlled including the symptoms attributed as anxiety. He is presenting for a follow-up visit for epilepsy. He has a history of experiencing seizures for the past four to five years, which occurred with a frequency of 20 to 50 times per day and were initially misdiagnosed as anxiety. The seizure episodes were characterized by a prodrome, followed by hot flashes and then cold flashes. His symptoms have resolved since his medication was changed to 750 mg twice daily, and he reports feeling great. Recent workup reveals a normal brain MRI, normal CT scan, and a normalized EEG. The patient denies any family history of seizures or any personal history of head injury. He inquired about potential mold exposure as a cause, which was deemed highly unlikely. [facility] Surgical History H/O hernia repair S/P ACL surgery Social History Household Members: Spouse and Children Housing: House Do you presently have visiting nurse or other home services: No Comment: refusing alarms Patient Tobacco Use Status: Never used Tobacco Substance Use Type: Marijuana service: No Review of Systems Narrative - Neurological: Reports a history of seizures for 4-5 years, occurring 20-50 times a day, which are now resolved with medication. - He also reports symptoms of hot flashes followed by cold flashes associated with the seizure episodes. - All other systems reviewed and are negative. Physical Exam Neuro Other: Mental Status: Alert and oriented to person, place, and time. Normal attention. Normal spontaneous speech, fluency, and comprehension. No obvious issues with mood and memory. Affect is appropriate. Cranial Nerves: CN II: Visual swanson full to confrontation, visual acuity intact. CN III, IV, : Pupils equal, round, reactive to light and accommodation. Extraocular movements are normal. CN V: Facial sensation is normal. CN VII: Facial movements symmetrical. CN VIII: Hearing intact to bedside conversation is normal. CN IX, X: Palate elevates symmetrically. CN XI: Shoulder shrug and head turn symmetrical. CN XII: Tongue midline without atrophy or fasciculations. Coordination: [id number] and [id number] testing normal. No dysmetria. Gait and Station: No obvious gait abnormality. No ataxia or instability. Extrapyramidal: Full facial expressions and blinking. No rigidity. Movements are appropriate with no tremor or abnormality. Speech: Normal; no dysarthria or tremor. Assessment & Plan Assessment & Plan (1) Generalized seizure disorder: Comment: EEG at [facility] in Feb 2025, taking Keppra: WNL Routine EEG at [facility] in Nov 2024: R FT epileptic discharges CT brain WO at [facility] in Nov 2024: [place] MRI brain WWO at [facility] in Nov 2024: [place] Code(s): G40.309 - Generalized idiopathic epilepsy and epileptic syndromes, not intractable, without status epilepticus Category: Medical Plan Impression: Generalized seizure disorder Rec: Levetiracetam 750mg bid I discussed with the patient that his diagnosis is epilepsy of unknown cause, as his brain MRI and CT are normal. I explained that the most logical explanation is a genetic predisposition and reassured him that prior mold exposure is a highly unlikely cause. We reviewed that his previous symptoms, which were mistaken for anxiety for years, have completely resolved with the current medication regimen of 750 mg twice daily. I advised him to continue the current medication, emphasizing that it is a long-term necessity and should not be stopped. I informed him that we have room to increase the dose if his symptoms were to return. I also provided education on avoiding common seizure triggers, such as sleep deprivation, excessive stress, alcohol, and drugs. A follow-up visit is scheduled for six months. Coding Level of Care Code Est Pt Level 4 (89041) Diagnoses Generalized seizure disorder G40.309
== END 2025-02-19 08:15 | disposition home or self-care (01) ==
LOC: HO.HSM 07:48
PROVIDERS: PCP Internal Medicine; Visit Provider Psychiatry & Neurology Neurology
DX: G40.309 Generalized idiopathic epilepsy and epileptic syndromes, not intractable, without status epilepticus (principal)
CPT/HCPCS: 99214